=== PATIENT | female | born 1950 | race Caucasian/White ===

== ENCOUNTER 2021-07-30 12:47 | Emergency (ER) | payer SELFPAY ==
[2021-07-30 13:42] VITALS: BP 221/108; PULSE 87; RESP 16; TEMP 37; O2SAT 98
--- NOTE | 2021-07-30 15:02 | ED.SKABFB ---
HPI - Skin/Abscess/Foreign Bdy General Chief complaint: Wound/Laceration Stated complaint: cat bite Time Seen by Provider: 07/30/21 15:02 Source: patient Mode of arrival: ambulatory Limitations: no limitations History of Present Illness HPI narrative: Lisa Love is a71 yo female with a PMh of hypertension and refusal to take medication who comes [facility] with right arm swelling and pain because of a cat bite to do 11 days ago. Patient has taken ibuprofen for pain; patient has had increasing swelling over the last few days from cat bite that she has neglected to follow-up with a doctor or the emergency room. Related Data Allergies Allergy/AdvReac Type Severity Reaction Status Date / Time No Known Allergies Allergy Verified 07/30/21 14:32 Review of Systems Review of Systems: CONSTITUTIONAL: Denies fever, chills, sweats. EYES: Denies visual changes, redness, discharge. ENT: Denies rhinorrhea, congestion, sore throat, otalgia. CARDIOVASCULAR: Denies chest pain, palpitations, edema. RESPIRATORY: Denies dyspnea, wheezing, cough GASTROINTESTINAL: Denies abdominal pain, nausea, vomiting, diarrhea. GENITOURINARY: Denies dysuria, hematuria, abnormal discharge SKIN: Denies rash or itching. NEUROLOGIC: Denies numbness, or focal weakness. PSYCHIATRIC: Denies anxiety or depression. Right arm pain and swelling from cat bite Note PMFSH Past Medical History Medical History HTN (hypertension) Social History Social History (Updated 07/30/21 @ 15:18 by Kaylyn Troncoso CNP) Smoking status: Never smoker Comments At time of signature, I agree with nursing past medical, surgical, social and family history. There is no relevant family history pertinent to the presenting complaint. Exam Narrative: GENERAL: This is a well-nourished, well-developed patient, in mmoderate distress. HEAD: normocephalic, atraumatic. EYES: Sclera clear/white. Vision is grossly intact. EARS: External ears normal, Hearing grossly intact. NOSE: External nose normal without nasal discharge, nares without redness, no rhinorrhea. THROAT: Mucous membranes moist, NECK: Neck supple, CARDIOVASCULAR: Regular rate and rhythm without murmurs, gallops, or rubs. RESPIRATORY: Clear to auscultation. Breath sounds equal bilaterally. No wheezes, rales, or rhonchi. GASTROINTESTINAL: Abdomen soft, SKIN: warm, intact with red warm swelling from the base of fingers up to the elbow; arm is warm to touch and painful, cap refill less than 2 seconds, 2+ radial pulse NEURO: awake, alert, and oriented to person, place and time. There were no obvious focal neurologic abnormalities. Steady gait EXTREMITIES: Normal range of motion. BACK: Nontender without deformity Course Course Emergency Course: Patient comes with cat bites 11 days old that is infected and extends from the base of her fingers of the right hand elevated to right elbow the bite is actually at the heel of the hand and appears well healed but diffuse soft tissue swelling surrounds the area. Area is warm and tender Patient's blood pressure is also 220/108 Patient notes that she has high blood pressure refuses to take medication Patient requires IV antibiotics but refuses to go to the emergency room repeats that she needs only oral antibiotics and is I tried to educate patient on the unlikelihood that this will adequately treat this infection but she refuses to be transferred to the ER given IM Ancef 500 mg here at the clinic and started on clindamycin as she is allergic to both penicillin and to sulfa drugs. Patient counseled on the potential bad outcome of a cat bite that is not adequately treated which includes sepsis and , osteomyelitis. Patient informed that she should go to the emergency room if she starts running a fever are that pain increases, or if swelling continues to evolve Level of Care: Express Care Visit Vital Signs Vital signs: Vital Sign
[2021-07-30 16:03] VITALS: BP 219/81
== END 2021-07-30 16:03 | disposition home or self-care (01) ==
PROVIDERS: Emergency Provider Nurse Practitioner
DX: L03.113 Cellulitis of right upper limb (principal); S41.151A Open bite of right upper arm, initial encounter; W55.01XA Bitten by cat, initial encounter; I10 Essential (primary) hypertension
CPT/HCPCS: 96372; 99203; G0463; J0690

== ENCOUNTER 2024-05-27 16:49 | Emergency (ER) | payer SELFPAY ==
[2024-05-27] VITALS (14 sets, daily range): BP systolic 99–131; BP diastolic 67–89; PULSE 74–81; RESP 13–23; TEMP 36.6; O2SAT 95–99
--- NOTE | ~2024-05-27 | XR_ITS ---
XR chest 1V portable DATE: 05/27/2024 20:20 INDICATION: Weakness TECHNIQUE: Portable upright AP chest on 05/27/2024 2014 hours COMPARISON: None FINDINGS: Probable partial left mastectomy. Heart size is within normal limits. There is aortic arch calcification, mild thoracic aortic unfoldin g. No hilar or mediastinal enlargement. The lungs are mildly hyperinflated but clear of infiltrate or consolidation. Mild linear atelectasis or scarring at the right lung base. No pleural effusion or pulmonary vascular congestion or pneumothorax is detected. Osteopenia. IMPRESSION: Mild linear atelectasis or scarring at the right lung base; otherwise no active cardiac p ulmonary disease Aortic atherosclerosis Osteopenia Partial left mastectomy Reviewed, dictated and finalized at location [facility]. IMPRESSION: Mild linear atelectasis or scarring at the right lung base; otherwi se no active cardiac pulmonary disease Aortic atherosclerosis Osteopenia Partial left mastectomy
--- NOTE | ~2024-05-27 | CT_ITS ---
EXAMINATION: CT brain wo con DATE: 05/27/2024 18:34 INDICATION: Altered mental state TECHNIQUE: Computed tomography (CT) of the head was performed without intravenous contrast. The mA wa s adjusted according to patient size. Iterative reconstruction technique was employed. Exam dose: 60 5.33 mGy-cm total exam DLP. COMPARISON: None FINDINGS: There is a prominent unilateral area of diminished attenuation of the superolateral medial aspect of the right cerebellar hemisphere, suggesting subacute cerebellar infarct versus neoplasm. Th ere is some mass effect upon the posterior anterolateral aspect of the adjacent right fourth ventricl e. MR imaging of the brain is recommended for further evaluation. No intracranial mass lesion or hemorrhage is noted otherwise. No midline shift or mass effect other t piña that described at the posterolateral right fourth ventricle. Bilateral carotid siphon internal carotid artery calcifications and prominent right vertebral artery and some basilar artery calcification is noted. There is nonspecific diminished attenuation of the ce rebral white matter, likely due to chronic small vessel ischemic changes. Bilateral basal ganglia calcifications. No subdural or epidural hematoma is detected. No fracture or bone destruction of the cranial vault. The mastoid air cells and included paranasal si nuses are unremarkable. IMPRESSION: Prominent focal asymmetric low attenuation of the superomedial aspect of the right cereb ellum, with mass effect upon the posterior lateral aspect of the fourth ventricle thought most likely to be due to subacute cerebellar infarct; neoplasm is not excluded. MR imaging of the brain is recom mended for further evaluation Intracranial cerebral atherosclerosis and prominent nonspecific patchy diminished attenuation the cer ebral white matter, likely due to chronic small vessel ischemic changes Reviewed, dictated and finalized at [facility]. Reviewed, dictated and finalized at location [facility]. IMPRESSION: Prominent focal asymmetric low attenuation of the superomedial asp ect of the right cerebellum, with mass effect upon the posterior lateral aspect of the fourth ventricle thought most likely to be due to subacute cerebellar i nfarct; neoplasm is not excluded. MR imaging of the brain is recommended for fu rther evaluation Intracranial cerebral atherosclerosis and prominent nonspecific patchy diminish ed attenuation the cerebral white matter, likely due to chronic small vessel is chemic changes
--- NOTE | 2024-05-27 16:50 | ED.AMS ---
HPI - Altered Mental Status General Chief Complaint: Altered Mental Status <Gilmer Dewey MD - Last Filed: 05/27/24 20:34> Stated Complaint: AMS <Gilmer Dewey MD - Last Filed: 05/27/24 20:34> Time Seen by Provider: 05/27/24 16:50 <Gilmer Dewey MD - Last Filed: 05/27/24 20:34> Source: family and EMS <Gilmer Dewey MD - Last Filed: 05/27/24 20:34> Mode of arrival: EMS <Gilmer Dewey MD - Last Filed: 05/27/24 20:34> Limitations: altered mental status and clinical condition <Gilmer Dewey MD - Last Filed: 05/27/24 20:34> History of Present Illness HPI narrative: 74 YEARS OLD WHITE FEMALE CAME FROM [facility] BECAUSE OF NOT HERSELF, HARD TO WAKE UP THIS MORNING.. THE FAMILY DENIED THE PATIENT HAVE ANY FEVER, CHILLS, NAUSEA, VOMITING, DIARRHEA OR CONSTIPATION. HISTORY OF RECENT HEMORRHAGIC STROKE, APHASIA, GENERALIZED WEAKNESS, CURRENTLY ON PHYSICAL THERAPY AND SPEECH THERAPY. <Gilmer Dewey MD - Last Filed: 05/27/24 20:34> Related Data Home Medications: Home Medications Medication Instructions Recorded Confirmed acetaminophen 325 mg tablet 650 mg PO Q6H PRN Pain 05/23/24 05/23/24 amlodipine 10 mg tablet 10 mg PO DAILY 05/23/24 05/23/24 chlorthalidone 50 mg tablet 50 mg PO DAILY 05/23/24 05/23/24 docusate sodium 100 mg capsule 100 mg PO BID 05/23/24 05/23/24 heparin (porcine) 5,000 unit/mL 5,000 unit subcut Q12H 05/23/24 05/23/24 injection solution losartan 100 mg tablet 100 mg PO HS 05/23/24 05/23/24 sennosides 8.6 mg tablet 8.6 mg PO BID 05/23/24 05/23/24 <Gilmer Dewey MD - Last Filed: 05/27/24 20:34> Allergies/Adverse Reactions: Allergies Allergy/AdvReac Type Severity Reaction Status Date / Time No Known Allergies Allergy Verified 07/30/21 14:32 <Gilmer Dewey MD - Last Filed: 05/27/24 20:34> Review of Systems Review of Systems: ROS unobtainable: Yes unobtainable due to medical condition and unobtainable due to mental status <Gilmer Dewey MD - Last Filed: 05/27/24 20:34> PMFSH Past Medical History Medical History: Medical History (Updated 05/27/24 @ 20:50 by Jovany Gomez MD) HTN (hypertension) <Gilmer Dewey MD - Last Filed: 05/27/24 20:34> Social History Social History: Social History (Updated 07/30/21 @ 15:18 by Kaylyn Troncoso, [employer]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) Smoking status: Never smoker Second hand tobacco smoke exposure: No Alcohol intake: never Substance use: never Spiritual care concerns: No <Gilmer Dewey MD - Last Filed: 05/27/24 20:34> Exam Narrative: GENERAL APPEARANCE: WELL-DEVELOPED, WELL-NOURISHED SKIN: NORMAL COLOR HEAD: NORMOCEPHALIC, NONTRAUMATIC EYES: CLEAR CONJUNCTIVA ENT: OROPHARYNX NORMAL, EARS NORMAL, NOSE NORMAL NECK: SUPPLE, NONTENDER CHEST AND RESPIRATORY: AIRWAY PATENT, NO RESPIRATORY DISTRESS, NO ACCESSORY MUSCLE USE HEART: REGULAR RATE/RHYTHM ABDOMEN: SOFT, NONTENDER, NO ORGANOMEGALY, QUIET BOWEL SOUNDS VASCULAR: NORMAL PERIPHERAL PULSES, NORMAL CAPILLARY REFILL. MUSCULOSKELETAL: PATIENT IS ABLE TO MOVE ALL EXTREMITIES WITHOUT ANY LIMITATION NEUROLOGIC: ALERT AND ORIENTED ORIENTED TO HER NAME ONLY EXPRESSIVE APHASIA <Gilmer Dewey MD - Last Filed: 05/27/24 20:34> Course Consultations Consultation #1: DR WELLS, AT SHIFT CHANGE, WAITING FOR NEUROSURGERY CONSULT AT [facility] <Gilmer Dewey MD - Last Filed: 05/27/24 20:34> Date: 05/27/24 <Gilmer Dewey MD - Last Filed: 05/27/24 20:34> Time: 20:34 <Gilmer Dewey MD - Last Filed: 05/27/24 20:34> Vital Signs Vital signs: Vital Signs Temperature 36.6 C 05/27/24 16:49 Pulse Rate 77 05/27/24 16:49 Respiratory Rate 19 05/27/24 16:49 Blood Pressure 117/68 05/27/24 16:49 Pulse Oximetry 95 05/27/24 16:49 Oxygen Delivery Room Air 05/27/24 16:49 Temperature 36.6 C 05/27/24 16:49 Pulse Rate 77 05/27/24 16:49 Respiratory Rate 19 05/27/24 16:49 Blood Pressure 117/68 05/27/24 16:49 Pulse Oximetry 95 05/27/24 16:49 Oxygen Delivery Room Air 05/27/24 17:37 <Gilmer Dewey MD - Last Filed: 05/27/24 20:34> Vital Signs Temperature 36.6 C 05/27/24 16:49 Pulse Rate 77 05/27/24 16:49 Respiratory Rate 19 05/27/24 16:49 Blood Pressure 117/68 05/27/24 16:49 Pulse Oximetry 95 05/27/24 16:49 Oxygen Delivery Room Air 05/27/24 16:49 Temperature 36.6 C 05/27/24 16:49 Pulse Rate 77 05/27/24 16:49 Respiratory Rate 19 05/27/24 16:49 Blood Pressure 117/68 05/27/24 16:49 Pulse Oximetry 95 05/27/24 16:49 Oxygen Delivery Room Air 05/27/24 17:37 <Jovany Gomez MD - Last Filed: 05/27/24 20:50> MDM - Altered Mental Status MDM Narrative Medical decision making narrative: PATIENT PRESENTS WITH NOT HERSELF, MORE WEAK AND LONG HOURS SLEEP. PATIENT IS STATUS POST HEMORRHAGIC STROKE, [facility] FOR THE LAST 7 DAYS. VITAL SIGNS ARE STABLE PHYSICAL EXAMINATION SHOWING A PATIENT NOT IN ANY PAIN OR DISTRESS. APHASIC DIFFERENTIAL DIAGNOSIS INCLUDE NEW CVA, ELECTROLYTE IMBALANCE, DEHYDRATION, URINARY TRACT INFECTION, PNEUMONIA, DEPRESSION BLOOD WORKUP TODAY SHOWED NO SIGNIFICANT ABNORMALITIES, URINALYSIS SHOWED NO EVIDENCE OF INFECTION CT HEAD SHOWED SUBACUTE CEREBELLAR INFARCT VERSUS NEW PLASMA MRI IMAGING OF THE BRAIN IS RECOMMENDED WAITING FOR NEUROSURGERY CONSULT AT [facility] TO FIND OUT IF THE CT SCAN RESULT IS NEW OR OLD. IN CASE OF NO ACUTE CHANGES , PATIENT CAN GO BACK TO REHAB. <Gilmer Dewey MD - Last Filed: 05/27/24 20:34> PATIENT PRESENTS WITH NOT HERSELF, MORE WEAK AND LONG HOURS SLEEP. PATIENT IS STATUS POST HEMORRHAGIC STROKE, [facility] FOR THE LAST 7 DAYS. VITAL SIGNS ARE STABLE PHYSICAL EXAMINATION SHOWING A PATIENT NOT IN ANY PAIN OR DISTRESS. APHASIC DIFFERENTIAL DIAGNOSIS INCLUDE NEW CVA, ELECTROLYTE IMBALANCE, DEHYDRATION, URINARY TRACT INFECTION, PNEUMONIA, DEPRESSION BLOOD WORKUP TODAY SHOWED NO SIGNIFICANT ABNORMALITIES, URINALYSIS SHOWED NO EVIDENCE OF INFECTION CT HEAD SHOWED SUBACUTE CEREBELLAR INFARCT VERSUS NEW PLASMA MRI IMAGING OF THE BRAIN IS RECOMMENDED WAITING FOR NEUROSURGERY CONSULT AT [facility] TO FIND OUT IF THE CT SCAN RESULT IS NEW OR OLD. IN CASE OF NO ACUTE CHANGES , PATIENT CAN GO BACK TO REHAB. Dr. Cardenas from [facility] at [place] reviewed the CT scan and noted that there is no change the patient will be discharged back to rehab <Jovany Gomez MD - Last Filed: 05/27/24 20:50> Differential Diagnosis Differential diagnosis: Likely other ( ABOVE) <Gilmer Dewey MD - Last Filed: 05/27/24 20:34> Medical Records Attestation: I reviewed the patient's medical records. <Gilmer Dewey MD - Last Filed: 05/27/24 20:34> Lab Data Attestation: I reviewed the patient's lab results. <Gilmer Dewey MD - Last Filed: 05/27/24 20:34> Result diagrams: 05/27/24 17:42 05/27/24 17:42 <Gilmer Dewey MD - Last Filed: 05/27/24 20:34> Labs: Lab Results 05/27/24 05/27/24 Range/Units 17:42 20:08 WBC 6.8 (4.5-10.0) K/mm3 RBC 3.47 L (4.2-5.4) M/mm3 Hgb 10.9 L (12.0-15.0) g/dL Hct 33.1 L (37.0-47.0) % MCV 95.4 (80-100) fl MCH 31.4 (26-34) pg MCHC 32.9 (32-36) g/dl RDW 15.0 H (11.5-14.5) % Plt Count 368 (150-375) k/mm3 MPV 8.8 (7.4-10.4) fl Immature Gran % (Auto) 0.4 (0-0.5) % Neut % (Auto) 68.9 (45.5-73.1) % Lymph % (Auto) 22.4 (18.3-44.2) % [place] % (Auto) 7.3 (2.6-8.5) % Eos % (Auto) 0.7 (0-4.4) % Baso % (Auto) 0.3 (0.2-1.2) % Lymph # (Auto) 1.51 (0.9-3.2) K/mm3 [place] # (Auto) 0.5 (0.1-0.6) K/mm3 Eos # (Auto) 0.1 (0-0.3) K/mm3 Baso # (Auto) 0.0 (0.0-0.1) K/mm3 Abs Immat Gran (auto) 0.03 (0.00-0.031) K/mm3 Absolute Neuts (auto) 4.7 (1.3-6.7) K/mm3 Absolute Nucleated RBC 0.000 (0.0-0.012) K/mm3 Nucleated RBC % 0.0 (0.0-0.2) % PT 13.5 (11.1-14.7) Seconds INR 1.0 APTT 27.1 (22.3-36.8) Seconds Sodium 135 L (137-145) mmol/L Potassium 4.5 (3.4-5.0) mmol/L Chloride 97 L (98-107) mmol/L Carbon Dioxide 26 (22-30) mmol/L Anion Gap 12 (4-12) mmol/L BUN 44 H (7-17) mg/dL Creatinine 1.00 (0.7-1.0) mg/dL Estim Creat Clear Calc Not Reportable Estimated GFR 54 L (59 - ) Glucose 97 (65-110) mg/dL Calcium 9.4 (8.4-10.2) mg/dL Total Bilirubin 0.4 (0.2-1.3) mg/dL AST 23 (14-36) U/L ALT 22 (6-35) U/L Alkaline Phosphatase 110 (38-126) U/L Total Protein 7.0 (6.3-8.2) g/dL Albumin 4.0 (3.5-5.1) g/dL Urine Color Dark yellow (Yellow) Urine Appearance Clear (Clear) Urine pH 5.5 (5.0-9.0) Ur Specific [place] 1.016 (1.001-1.035) Urine Protein Negative (Negative) mg/dL Urine Glucose (UA) Negative (Negative) mg/dL Urine Ketones Negative (Negative) mg/dL Ur Blood (Man) Negative (Negative) Urine Nitrate Negative (Negative) Urine Bilirubin Negative (Negative) Urine Urobilinogen 0.2 (<2.0) mg/dL Leukocyte Esterase Rfl Trace H (Negative) MARTHA/UL Urine RBC 0-2 (0-2) /hpf Urine WBC 0-5 (0-3) /hpf Ur Squamous Epith Cells None seen (Few) /hpf Urine Bacteria 4+ H /hpf Urine Casts 3-5 Influenza A (RT-PCR) Pending Influenza B (RT-PCR) Pending RSV (RT-PCR) Pending SARS-CoV-2 RNA (RT-PCR) Pending <Gilmer Dewey MD - Last Filed: 05/27/24 20:34> Lab Results 05/27/24 05/27/24 Range/Units 17:42 20:08 WBC 6.8 (4.5-10.0) K/mm3 RBC 3.47 L (4.2-5.4) M/mm3 Hgb 10.9 L (12.0-15.0) g/dL Hct 33.1 L (37.0-47.0) % MCV 95.4 (80-100) fl MCH 31.4 (26-34) pg MCHC 32.9 (32-36) g/dl RDW 15.0 H (11.5-14.5) % Plt Count 368 (150-375) k/mm3 MPV 8.8 (7.4-10.4) fl Immature Gran % (Auto) 0.4 (0-0.5) % Neut % (Auto) 68.9 (45.5-73.1) % Lymph % (Auto) 22.4 (18.3-44.2) % [place] % (Auto) 7.3 (2.6-8.5) % Eos % (Auto) 0.7 (0-4.4) % Baso % (Auto) 0.3 (0.2-1.2) % Lymph # (Auto) 1.51 (0.9-3.2) K/mm3 [place] # (Auto) 0.5 (0.1-0.6) K/mm3 Eos # (Auto) 0.1 (0-0.3) K/mm3 Baso # (Auto) 0.0 (0.0-0.1) K/mm3 Abs Immat Gran (auto) 0.03 (0.00-0.031) K/mm3 Absolute Neuts (auto) 4.7 (1.3-6.7) K/mm3 Absolute Nucleated RBC 0.000 (0.0-0.012) K/mm3 Nucleated RBC % 0.0 (0.0-0.2) % PT 13.5 (11.1-14.7) Seconds INR 1.0 APTT 27.1 (22.3-36.8) Seconds Sodium 135 L (137-145) mmol/L Potassium 4.5 (3.4-5.0) mmol/L Chloride 97 L (98-107) mmol/L Carbon Dioxide 26 (22-30) mmol/L Anion Gap 12 (4-12) mmol/L BUN 44 H (7-17) mg/dL Creatinine 1.00 (0.7-1.0) mg/dL Estim Creat Clear Calc Not Reportable Estimated GFR 54 L (59 - ) Glucose 97 (65-110) mg/dL Calcium 9.4 (8.4-10.2) mg/dL Total Bilirubin 0.4 (0.2-1.3) mg/dL AST 23 (14-36) U/L ALT 22 (6-35) U/L Alkaline Phosphatase 110 (38-126) U/L Total Protein 7.0 (6.3-8.2) g/dL Albumin 4.0 (3.5-5.1) g/dL Urine Color Dark yellow (Yellow) Urine Appearance Clear (Clear) Urine pH 5.5 (5.0-9.0) Ur Specific [place] 1.016 (1.001-1.035) Urine Protein Negative (Negative) mg/dL Urine Glucose (UA) Negative (Negative) mg/dL Urine Ketones Negative (Negative) mg/dL Ur Blood (Man) Negative (Negative) Urine Nitrate Negative (Negative) Urine Bilirubin Negative (Negative) Urine Urobilinogen 0.2 (<2.0) mg/dL Leukocyte Esterase Rfl Trace H (Negative) MARTHA/UL Urine RBC 0-2 (0-2) /hpf Urine WBC 0-5 (0-3) /hpf Ur Squamous Epith Cells None seen (Few) /hpf Urine Bacteria 4+ H /hpf Urine Casts 3-5 Influenza A (RT-PCR) Pending Influenza B (RT-PCR) Pending RSV (RT-PCR) Pending SARS-CoV-2 RNA (RT-PCR) Pending <Jovany Gomez MD - Last Filed: 05/27/24 20:50> Imaging Data Radiologist's impression: Impressions Head CT 05/27/24 18:35 IMPRESSION: Prominent focal asymmetric low attenuation of the superomedial aspect of the right cerebellum, with mass effect upon the posterior lateral aspect of the fourth ventricle thought most likely to be due to subacute cerebellar infarct; neoplasm is not excluded. MR imaging of the brain is recommended for further evaluation Intracranial cerebral atherosclerosis and prominent nonspecific patchy diminished attenuation the cerebral white matter, likely due to chronic small vessel ischemic changes <Gilmer Dewey MD - Last Filed: 05/27/24 20:34> ECG Data EKG #1: Attestation: I personally reviewed and interpreted this ECG as follows: <Gilmer Dewey MD - Last Filed: 05/27/24 20:34> ECG completion date: 05/27/24 <Gilmer Dewey MD - Last Filed: 05/27/24 20:34> ECG completion time: 20:03 <Gilmer Dewey MD - Last Filed: 05/27/24 20:34> Prior ECG tracings: not available for review <Gilmer Dewey MD - Last Filed: 05/27/24 20:34> Interpretation: NORMAL SINUS RHYTHM AT 78 BEATS PER MINUTE, LEFT AXIS DEVIATION, INCOMPLETE RIGHT BUNDLE-BRANCH BLOCK, ANTERIOR INFARCT AGE INDETERMINATE, INFERIOR INFARCT AGE INDETERMINATE, ABNORMAL EKG, NO PREVIOUS EKG AVAILABLE FOR COMPARISON <Gilmer Dewey MD - Last Filed: 05/27/24 20:34> Critical Care Time Critical Care Time Critical Care Time: Yes <Gilmer Dewey MD - Last Filed: 05/27/24 20:34> Total Critical Care Time: 30 <Gilmer Dewey MD - Last Filed: 05/27/24 20:34> Discharge Plan Discharge Clinical Impression: Generalized weakness <Gilmer Dewey MD - Last Filed: 05/27/24 20:34> Patient Disposition: NH Detention/Asst Living <Gilmer Dewey MD - Last Filed: 05/27/24 20:34> Condition: Stable <Gilmer Dewey MD - Last Filed: 05/27/24 20:34> Instructions: Antibiotic Form, General Patient Instructions, Weakness (ED) <Gilmer Dewey MD - Last Filed: 05/27/24 20:34> Prescriptions: No Action sennosides 8.6 mg Tablet 8.6 mg PO BID acetaminophen 325 mg Tablet 650 mg PO Q6H PRN (Reason: Pain) chlorthalidone 50 mg Tablet 50 mg PO DAILY amlodipine 10 mg Tablet 10 mg PO DAILY docusate sodium 100 mg Capsule 100 mg PO BID losartan 100 mg Tablet 100 mg PO HS heparin (porcine) 5,000 unit/mL Solution 5,000 unit SUBCUT Q12H <Gilmer Dewey MD - Last Filed: 05/27/24 20:34> Follow-up/Referrals: PHYSICIAN NOT ON STAFF,NONSTAFF [Non-Staff] - <Gilmer Dewey MD - Last Filed: 05/27/24 20:34> Time of Disposition: 20:50 <Gilmer Dewey MD - Last Filed: 05/27/24 20:34> 20:50 <Jovany Gomez MD - Last Filed: 05/27/24 20:50>
--- NOTE | 2024-05-27 16:57 | ECG_ITS ---
Test Date: 2024-05-27 17:15:09 Measurements Intervals [place] Rate: 78 P: 53 [place]: 173 QRS: -35 QRSD: 96 T: 42 QT: 367 QTc: 419 Interpretive Statements SINUS RHYTHM LEFT AXIS DEVIATION INCOMPLETE RIGHT BUNDLE BRANCH BLOCK ANTERIOR INFARCT, AGE INDETERMINATE INFERIOR INFARCT, AGE INDETERMINATE BASELINE ARTIFACT- I, II, III, AVR, AVL, AVF, V1-V2 ABNORMAL ECG No previous ECG available for comparison Electronically Signed On 05-27-2024 17:17:03 CDT by Drew Roque D.O.
[2024-05-27 17:56] LABS: Basophils Percent Auto 0.3 % (0.2-1.2); Eosinophils Absolute Auto 0.1 K/mm3 (0-0.3); Eosinophils Percent Auto 0.7 % (0-4.4); Hematocrit 33.1 % (37.0-47.0); Hemoglobin 10.9 g/dL (12.0-15.0); Immature Granulocyte Absolute 0.03 K/mm3 (0.00-0.031); Immature Granulocyte Percent A 0.4 % (0-0.5); Lymphocytes Absolute Auto 1.51 K/mm3 (0.9-3.2); Lymphocytes Percent Auto 22.4 % (18.3-44.2); Mean Corpuscular HGB Conc 32.9 g/dl (32-36); Mean Corpuscular Hemoglobin 31.4 pg (26-34); Mean Corpuscular Volume 95.4 fl (80-100); Mean Platelet Volume 8.8 fl (7.4-10.4); Monocytes Absolute Auto 0.5 K/mm3 (0.1-0.6); Monocytes Percent Auto 7.3 % (2.6-8.5); Neutrophils Absolute Auto 4.7 K/mm3 (1.3-6.7); Neutrophils Percent Auto 68.9 % (45.5-73.1); Platelet Count Result 368 k/mm3 (150-375); Red Blood Count 3.47 M/mm3 (4.2-5.4); White Blood Count 6.8 K/mm3 (4.5-10.0)
[2024-05-27 17:59] LABS: Add Urine Microscopic? YES; Appearance Urine Clear (Clear); Bacteria Urine 4+ /hpf; Bilirubin Urine Negative (Negative); Blood Urine Negative (Negative); Color Urine Dark Yellow (Yellow); Glucose Urine UA Negative (Negative); Ketones Urine Negative (Negative); Leukocyte Esterase Ur Trace LEU/UL (Negative); Nitrate Urine Negative (Negative); Protein Urine Negative (Negative); RBC Urine 0-2 /hpf (0-2); Specific Grav Ur 1.016 (1.001-1.035); Squamous Epithelial Cell Urine None Seen /hpf (Few); Urobilinogen Urine 0.2 mg/dL (<2.0); WBC Urine 0-5 /hpf (0-3); pH Urine 5.5 (5.0-9.0)
[2024-05-27 18:06] LABS: Alanine Aminotransferase 22 U/L (6-35); Alkaline Phosphatase 110 U/L (38-126); Anion Gap 12 mmol/L (4-12); Aspartate Amino Transferase 23 U/L (14-36); Bilirubin,Total 0.4 mg/dL (0.2-1.3); Blood Urea Nitrogen 44 mg/dL (7-17); Calcium 9.4 mg/dL (8.4-10.2); Carbon Dioxide 26 mmol/L (22-30); Chloride 97 mmol/L (98-107); Estimated Glomerular Filt Rate 54; Glucose 97 mg/dL (65-110); Potassium 4.5 mmol/L (3.4-5.0); Sodium 135 mmol/L (137-145)
[2024-05-27 18:07] LABS: Prothrombin Time 13.5 Seconds (11.1-14.7)
[2024-05-27 18:13] LABS: Partial Thromboplastin Time 27.1 Seconds (22.3-36.8)
[2024-05-27 20:54] LABS: Influenza A QL RT-PCR Negative (Negative); Influenza B QL RT-PCR Negative (Negative); RSV RNA, RT-PCR Negative (Negative); SARS-CoV-2 RNA PCR Negative (Negative)
[2024-05-28 00:40] VITALS: BP 125/68; RESP 20; O2SAT 97
--- NOTE | 2024-05-28 00:41 | PC.NURSE ---
This RN attempted to call report to [facility], spoke with Meryl. Meryl stated we don't accept patients past midnight. This RN informed Meryl the patient is a patient of [facility] and is coming back. The patient was already a patient there and I was calling to give report. Meryl stated she checked with other staff and that they do not accept patients after midnight and the patient will have to wait until the morning to come back. This RN informed her that patients in the past have been accepted back after being discharged from the ER. Meryl stated well I don't know what to tell you. This RN requested to speak to the hotel service supervisor, she stated I am the hotel service supervisor xu. This RN spoke with nurse charge rn and supervisor shellfish farming MALIA Viramontes who then called Meryl at [facility] and spoke with [facility] administration who then stated the patient can return back to [facility]. Report was called again to Meryl at 0125.
== END 2024-05-28 01:39 ==
PROVIDERS: Emergency Provider Emergency Medicine; PCP Family Medicine
DX: R53.1 Weakness (principal); I10 Essential (primary) hypertension; Z20.822 Contact with and (suspected) exposure to COVID-19
CPT/HCPCS: 36415; 70450; 71045; 80053; 81001; 85025; 85610; 85730; 87637; 93005; 99284

== ENCOUNTER 2024-06-06 13:43 | Emergency (ER) | payer SELFPAY ==
--- NOTE | ~2024-06-06 | CT_ITS ---
History: Altered mental status PROCEDURE: CT head without contrast. COMPARISON: 05/27/2024 TECHNIQUE: Axial imaging of the head performed from the skull base to the vertex without IV contrast. Sagittal a nd coronal reformations obtained. DLP: 684 mGy-cm FINDINGS: Redemonstration of an asymmetric focus of decreased attenuation measuring 24 x 26 x 23 mm within the cerebellum, primarily to the right of midline demonstrating mass effect on the fourth ventricle. There is no abnormal extra-axial fluid collection or intracranial hemorrhage. Visualized paranasal sinuses are clear. The mastoid air cells are well aerated. No acute displaced fractures within the overlying cranium. Impression: Redemonstration of an asymmetric focus of decreased attenuation within the cerebellum demonstrating m ass effect on the fourth ventricle for which contrast enhanced MRI is recommended. Reviewed, dictated and finalized at location A. S SERVICE PROFESSIONAL Impression: Redemonstration of an asymmetric focus of decreased attenuation within the cere bellum demonstrating mass effect on the fourth ventricle for which contrast enh anced MRI is recommended.
[2024-06-06 13:47] VITALS: BP 148/87; PULSE 94; RESP 16; TEMP 36.6; O2SAT 99
[2024-06-06 14:00] VITALS: BP 141/78; PULSE 89; RESP 14; O2SAT 98
--- NOTE | 2024-06-06 14:09 | PC.NURSE ---
Baseline post CVA last month - A&Ox1-2. LKW of baseline A&O1-2 is yesterday afternoon sometime, exact time unknown. Information per MALIA Calle at [facility]. [facility] has already contacted pt. MATIAS Gonzalez Racquel (daughter) [phone].
[2024-06-06 14:21] LABS: Glucose Point of Care 117 mg/dl (65-105)
[2024-06-06 15:15] VITALS: BP 119/69; PULSE 82; RESP 14; O2SAT 98
--- NOTE | 2024-06-06 15:48 | ED_ITS ---
HPI - General Adult General Chief complaint: Altered Mental Status Stated complaint: AMS Time Seen by Provider: 06/06/24 15:27 History of Present Illness HPI narrative: 74-year-old female presenting to the emergency department for evaluation for increased confusion. Patient is new to rehab facility they felt that she was more confused than normal. Patient is aware that she is an [facility], she is aware she had a recent stroke and she is aware that people felt that she was confused. Patient denies any pain or complaints. Patient denies any pain with urination. Patient denies any recent falls or injuries. from previous EMR- Lisa Rony Love is a 74 y.o. female with no significant past medical history admitted to NNICU for ventriculomegaly and possible h ydrocephalus 2/2 posterior fossa mass. Initially she presented to [facility] ED with c/o nausea, vomiting, difficulty walking and talking progressively worsening x1 week. Had not seen a physician in 35 years, no medical conditions or medications per her daughter. 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 Transferred to [facility] NNICU for NSGY evaluation 05/03 and EVD placed. Brain MRI without contrast performed 05/04 and demonstrated a subacute cerebellar intraparenchymal hemorrhage without clear abnormal contrast enhancement. The hemorrhage was bright on T1 and T2, suggestive of a subacute hemorrhage, in addition, she had chronic microbleeds in a pattern that was consistent with hypertensive induced injuries. Neurology concerned for potential mass lesion and recommended pt. have repeat MRI in 2-3 months once her hemorrhage has fully resolved. Pt?s EVD clamped on 05/05 and removed on 05/06. Pt. experienced new dysphagia, MBS done on 05/08 and pureed diet recommend and PO for pleasure only, NPO for liquid and NG tube placed for TF. Repeat swallow on 05/11 recommended dysphagia 1 diet, honey thick liquids and meds in puree. Due to poor oral intake and PO feedings limited to pleasure G tube discussed with family and placed 05/13. MBS passed on 05/17 and regular diet with thin liquids allowed TF for night nutrition. 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, left cerebellum Debilitated HTN (hypertension) Intraparenchymal hemorrhage of brain Social History Social History Smoking status: Never smoker Second hand tobacco smoke exposure: No Alcohol intake: never Substance use: never Substance use type: does not use Do You Feel Safe in your Home?: Yes Lack of Transportation: No Lack of Food: Never True Current Housing: I Have Housing Concerned About Future Housing: No Difficulty Paying Gas/Electric Bills: No Difficulty Paying for Meds: No Currently Unemployed: No Education: Master's Degree or Higher Difficulty w/ Childcare or Family Care: No Spiritual care concerns: No Exam Narrative: APPEARANCE: Well appearing, no pain, no distress, well-nourished. HEAD: normocephalic, atraumatic. EYES: PERRLA/EOMI, conjunctivae clear. NOSE: Normal no drainage EARS:TMS clear with good light reflex. THROAT: Pharynx clear, no exudate. NECK: Supple. No adenopathy, no masses. RESPIRATORY: Airway patent, respirations nonlabored. Clear to auscultation bilaterally, no rales, rhonchi, wheezing. CARDIOVASCULAR: Regular rate and rhythm without murmurs rubs or gallops. ABDOMINAL: Soft, nontender, nondistended, normal bowel sounds MUSCULOSKELETAL: Moves all extremities. Strength/ROM intact, No edema, No calf tenderness. NEURO: Alert. Cranial nerves II through XII intact. Good gait. Good coordination SKIN: Warm, dry. Normal Color Course Vital Signs Vital signs: Vital Signs Temperature 97.8 F 06/06/24 13:47 Pulse Rate 94 06/06/24 13:47 Respiratory Rate 16 06/06/24 13:47 Blood Pressure 148/87 H 06/06/24 13:47 Pulse Oximetry 99 06/06/24 13:47 Oxygen Delivery Room Air 06/06/24 13:47 Temperature 97.8 F 06/06/24 13:47 Pulse Rate 82 06/06/24 15:15 Respiratory Rate 14 06/06/24 15:15 Blood Pressure 119/69 06/06/24 15:15 Pulse Oximetry 98 06/06/24 15:15 Oxygen Delivery Room Air 06/06/24 13:54 Medical Decision Making MDM Narrative Medical decision making narrative: Imaging was unchanged compared to previous. Patient is being treated for urinary tract infection. Vital Signs Vital Signs: Vital Signs Temperature 97.8 F 06/06/24 13:47 Pulse Rate 94 06/06/24 13:47 Respiratory Rate 16 06/06/24 13:47 Blood Pressure 148/87 H 06/06/24 13:47 Pulse Oximetry 99 06/06/24 13:47 Oxygen Delivery Room Air 06/06/24 13:47 Temperature 97.8 F 06/06/24 13:47 Pulse Rate 82 06/06/24 15:15 Respiratory Rate 14 06/06/24 15:15 Blood Pressure 119/69 06/06/24 15:15 Pulse Oximetry 98 06/06/24 15:15 Oxygen Delivery Room Air 06/06/24 13:54 Lab Data 06/06/24 15:56 06/06/24 15:56 Labs: Lab Results 06/06/24 06/06/24 06/06/24 Range/Units 14:18 15:56 16:54 WBC 6.4 (4.5-10.0) K/mm3 RBC 3.33 L (4.2-5.4) M/mm3 Hgb 10.6 L (12.0-15.0) g/dL Hct 32.0 L (37.0-47.0) % MCV 96.1 (80-100) fl MCH 31.8 (26-34) pg MCHC 33.1 (32-36) g/dl RDW 15.1 H (11.5-14.5) % Plt Count 294 (150-375) k/mm3 MPV 8.7 (7.4-10.4) fl Immature Gran % (Auto) 0.3 (0-0.5) % Neut % (Auto) 73.2 H (45.5-73.1) % Lymph % (Auto) 20.6 (18.3-44.2) % [place] % (Auto) 5.1 (2.6-8.5) % Eos % (Auto) 0.3 (0-4.4) % Baso % (Auto) 0.5 (0.2-1.2) % Lymph # (Auto) 1.32 (0.9-3.2) K/mm3 [place] # (Auto) 0.3 (0.1-0.6) K/mm3 Eos # (Auto) 0.0 (0-0.3) K/mm3 Baso # (Auto) 0.0 (0.0-0.1) K/mm3 Abs Immat Gran (auto) 0.02 (0.00-0.031) K/mm3 Absolute Neuts (auto) 4.7 (1.3-6.7) K/mm3 Absolute Nucleated RBC 0.000 (0.0-0.012) K/mm3 Nucleated RBC % 0.0 (0.0-0.2) % PT 14.0 (11.1-14.7) Seconds INR 1.1 APTT 30.8 (22.3-36.8) Seconds Sodium 136 L (137-145) mmol/L Potassium 4.0 (3.4-5.0) mmol/L Chloride 98 (98-107) mmol/L Carbon Dioxide 31 H (22-30) mmol/L Anion Gap 7 (4-12) mmol/L BUN 21 H (7-17) mg/dL Creatinine 0.70 (0.7-1.0) mg/dL Estim Creat Clear Calc Not Reportable Estimated GFR > 60 (59 - ) Glucose 111 H (65-110) mg/dL POC Capillary Glucose 117 H (65-105) mg/dl Calcium 9.8 (8.4-10.2) mg/dL Total Bilirubin 0.2 (0.2-1.3) mg/dL AST 27 (14-36) U/L ALT 17 (6-35) U/L Alkaline Phosphatase 112 (38-126) U/L Total Protein 8.0 (6.3-8.2) g/dL Albumin 4.2 (3.5-5.1) g/dL Urine Color Yellow (Yellow) Urine Appearance Clear (Clear) Urine pH 7.5 (5.0-9.0) Ur Specific [place] 1.018 (1.001-1.035) Urine Protein Negative (Negative) mg/dL Urine Glucose (UA) Negative (Negative) mg/dL Urine Ketones Negative (Negative) mg/dL Ur Blood (Man) Negative (Negative) Urine Nitrate Negative (Negative) Urine Bilirubin Negative (Negative) Urine Urobilinogen 0.2 (<2.0) mg/dL Add Ur Microanalysis Reviewed Leukocyte Esterase Rfl 2+ H (Negative) MARTHA/UL Urine RBC 3-5 H (0-2) /hpf Urine WBC 21-50 H (0-3) /hpf Ur Squamous Epith Cells Occasional (Few) /hpf Urine Bacteria None seen /hpf Urine Casts 3-5 Influenza A (RT-PCR) Negative (Negative) Influenza B (RT-PCR) Negative (Negative) RSV (RT-PCR) Negative (Negative) SARS-CoV-2 RNA (RT-PCR) Negative (Negative) Discharge Plan Discharge Clinical Impression: UTI (urinary tract infection) Qualifiers: Urinary tract infection type: acute cystitis Hematuria presence: without hematuria Qualified Code(s): N30.00 - Acute cystitis without hematuria Patient Disposition: NH Half-Way/Asst Living Condition: Stable Instructions: Antibiotic Form, General Patient Instructions, Urinary Tract Inf ection in Women (DC) Additional Instructions: Antibiotic as directed until completed. Have close follow-up with your physicians. If you have any worsening symptoms then please call or return to the emergency department. Prescriptions: No Action sennosides-docusate sodium [Senna with Docusate Sodium] 8.6-50 mg Tablet 2 tablet PO BID Qty: 30 0RF atorvastatin 40 mg Tablet 40 mg PO DAILY Qty: 30 0RF acetaminophen 325 mg Tablet 650 mg PO Q6H PRN (Reason: Pain 1- 10) Qty: 30 0RF sennosides-docusate sodium [Senokot-S] 8.6-50 mg Tablet 2 tab PO BID Qty: 30 0RF amlodipine [Norvasc] 5 mg Tablet 5 mg PO DAILY Qty: 30 0RF modafinil [Provigil] 200 mg Tablet 200 mg PO QAM Qty: 30 0RF losartan 25 mg Tablet 25 mg PO HS Qty: 30 0RF aspirin [Children's Aspirin] 81 mg Tablet,Chewable 81 mg PO QAM Qty: 30 0RF hydrochlorothiazide 25 mg Tablet 25 mg PO DAILY Qty: 30 0RF mirtazapine [Remeron] 15 mg Tablet 7.5 mg PO HS Qty: 30 0RF acetaminophen 325 mg Tablet 650 mg PO Q6H PRN (Reason: Pain) Follow-up/Referrals: Hiram,Mony Babin DO [Primary Care Provider] -
[2024-06-06 16:04] LABS: Basophils Percent Auto 0.5 % (0.2-1.2); Eosinophils Percent Auto 0.3 % (0-4.4); Hemoglobin 10.6 g/dL (12.0-15.0); Immature Granulocyte Absolute 0.02 K/mm3 (0.00-0.031); Immature Granulocyte Percent A 0.3 % (0-0.5); Lymphocytes Absolute Auto 1.32 K/mm3 (0.9-3.2); Lymphocytes Percent Auto 20.6 % (18.3-44.2); Mean Corpuscular HGB Conc 33.1 g/dl (32-36); Mean Corpuscular Hemoglobin 31.8 pg (26-34); Mean Corpuscular Volume 96.1 fl (80-100); Mean Platelet Volume 8.7 fl (7.4-10.4); Monocytes Absolute Auto 0.3 K/mm3 (0.1-0.6); Monocytes Percent Auto 5.1 % (2.6-8.5); Neutrophils Absolute Auto 4.7 K/mm3 (1.3-6.7); Neutrophils Percent Auto 73.2 % (45.5-73.1); Platelet Count Result 294 k/mm3 (150-375); Red Blood Count 3.33 M/mm3 (4.2-5.4); Red Cell Distribution Width 15.1 % (11.5-14.5); White Blood Count 6.4 K/mm3 (4.5-10.0)
[2024-06-06 16:14] LABS: Alanine Aminotransferase 17 U/L (6-35); Albumin Level 4.2 g/dL (3.5-5.1); Alkaline Phosphatase 112 U/L (38-126); Anion Gap 7 mmol/L (4-12); Aspartate Amino Transferase 27 U/L (14-36); Bilirubin,Total 0.2 mg/dL (0.2-1.3); Blood Urea Nitrogen 21 mg/dL (7-17); Calcium 9.8 mg/dL (8.4-10.2); Carbon Dioxide 31 mmol/L (22-30); Chloride 98 mmol/L (98-107); Estimated Glomerular Filt Rate > 60; Glucose 111 mg/dL (65-110); Sodium 136 mmol/L (137-145)
[2024-06-06 16:23] LABS: INR 1.1
[2024-06-06 16:24] LABS: Partial Thromboplastin Time 30.8 Seconds (22.3-36.8)
[2024-06-06 16:40] LABS: Influenza A QL RT-PCR Negative (Negative); Influenza B QL RT-PCR Negative (Negative); RSV RNA, RT-PCR Negative (Negative); SARS-CoV-2 RNA PCR Negative (Negative)
[2024-06-06 17:12] LABS: Add Urine Microscopic? YES; Appearance Urine Clear (Clear); Bacteria Urine None Seen /hpf; Bilirubin Urine Negative (Negative); Blood Urine Negative (Negative); Color Urine Yellow (Yellow); Glucose Urine UA Negative (Negative); Ketones Urine Negative (Negative); Leukocyte Esterase Ur 2+ LEU/UL (Negative); Need Manual Microscopic Reviewed; Nitrate Urine Negative (Negative); Protein Urine Negative (Negative); Specific Grav Ur 1.018 (1.001-1.035); Squamous Epithelial Cell Urine Occasional /hpf (Few); Urobilinogen Urine 0.2 mg/dL (<2.0); WBC Urine 21-50 /hpf (0-3); pH Urine 7.5 (5.0-9.0)
[2024-06-06] MEDS: CEPHALEXIN 500 MG CAPSULE PO (18:34)
== END 2024-06-06 18:59 ==
PROVIDERS: Emergency Provider Emergency Medicine; PCP Family Medicine
DX: N30.00 Acute cystitis without hematuria (principal); Z20.822 Contact with and (suspected) exposure to COVID-19; I10 Essential (primary) hypertension; Z86.73 Personal history of transient ischemic attack (TIA), and cerebral infarction without residual deficits; Z79.82 Long term (current) use of aspirin; Z79.899 Other long term (current) drug therapy
CPT/HCPCS: 36415; 70450; 80053; 81001; 82948; 85025; 85610; 85730; 87086; 87637; 99284; A9270

== ENCOUNTER 2024-06-08 11:58 | Inpatient (IN) | payer MEDICARE, SELFPAY ==
[2024-06-08] VITALS (7 sets, daily range): BP systolic 131–170; BP diastolic 65–73; PULSE 80–96; RESP 16–20; TEMP 36.4–36.8; O2SAT 95–100; BMI 17.6
--- NOTE | ~2024-06-08 | CT_ITS ---
EXAMINATION: CT brain wo con DATE: 06/10/2024 09:40 INDICATION: Head injury. Fall. TECHNIQUE: Computed tomography (CT) of the head was performed without intravenous contrast. The mA wa s adjusted according to patient size. Iterative reconstruction technique was employed. The dose-lengt h product was 681.00 mGy-cm. COMPARISON: Head CT 06/06/24, brain MRI 06/08/2024 FINDINGS: There is a hypodense old hematoma in the right cerebellum with mild mass effect on the four th ventricle. There is a small old left cerebellar infarct. There are scattered areas of low attenuat ion in the cerebral white matter and bilateral basal ganglia. Again seen is a small acute infarct in the right temporal occipital white matter. There is no abnormal mass lesion. The orbits are normal. T he paranasal sinuses are clear. The mastoid air cells are normal. There is an old rajinder hole in right frontal bone. There is left posterior scalp soft tissue swelling. IMPRESSION: 1. Stable small acute infarct in the right temporal occipital region. 2. Stable chronic hematoma in the right cerebellum. 3. Small old infarct in the left cerebellum. 4. Stable extensive nonspecific cerebral white matter disease and disease of the bilateral basal gang dmitriy, which likely represents chronic small vessel ischemic disease. Reviewed, dictated and finalized at location A. HOSE CUTTER IMPRESSION: 1. Stable small acute infarct in the right temporal occipital region. 2. Stable chronic hematoma in the right cerebellum. 3. Small old infarct in the left cerebellum. 4. Stable extensive nonspecific cerebral white matter disease and disease of th e bilateral basal ganglia, which likely represents chronic small vessel ischemi c disease.
--- NOTE | ~2024-06-08 | CT_ITS ---
EXAMINATION: CT cervical spine wo con DATE: 06/10/2024 09:44 INDICATION: Head injury. TECHNIQUE: Computed tomography (CT) of the cervical spine was performed without intravenous contrast. Automated exposure control and iterative reconstruction technique were employed. The dose-length pro duct was 105.62 mGy-cm. COMPARISON: None FINDINGS: There is 2 mm anterolisthesis of C7 on T1. Vertebral body heights are normal. There is dagmar rely decreased disc height at C4-C5 and C5-C6 and mildly decreased disc height at C6-C7. The followin g disc levels are specifically discussed: C2-C3: There is no uncovertebral joint osteoarthritis. There is severe right and mild left facet join t osteoarthritis. There is no neural foraminal stenosis. There is no central canal stenosis. C3-C4: There is moderate bilateral uncovertebral joint osteoarthritis. There is moderate right and se mil left facet joint osteoarthritis. There is mild bilateral neural foraminal stenosis. There is mil d central canal stenosis. C4-C5: There is severe bilateral uncovertebral joint osteoarthritis. There is moderate right and mild left facet joint osteoarthritis. There is moderate right and mild left neural foraminal stenosis. Th ere is mild central canal stenosis. C5-C6: There is severe bilateral uncovertebral joint osteoarthritis. There is mild bilateral facet chris int osteoarthritis. There is mild bilateral neural foraminal stenosis. There is mild central canal st enosis. C6-C7: There is no uncovertebral joint osteoarthritis. There is mild right and severe left facet join t osteoarthritis. There is mild left neural foraminal stenosis. There is no central canal stenosis. C7-T1: There is no uncovertebral joint osteoarthritis. There is ankylosis of the facet joints with mi ld hypertrophy. There is mild bilateral neural foraminal stenosis. There is no central canal stenosis . IMPRESSION: 1. No fracture. 2. Severe cervical spondylosis. Reviewed, dictated and finalized at location A. ERIN OPERATOR
--- NOTE | ~2024-06-08 | XR_ITS ---
EXAMINATION: XR chest 1V portable DATE: 06/08/2024 12:49 INDICATION: Stroke. Weakness. TECHNIQUE: frontal view of the chest was obtained. COMPARISON: Chest radiograph dated 05/27/2024 FINDINGS: Calcified nodules in the right lower lung zone and projecting over the left hemidiaphragm consistent with old granulomatous disease. No other airspace opacities, pulmonary edema, pleural effusion or pne umothorax. The cardiomediastinal silhouette is normal. Mild lower thoracic dextrocurvature with moder ate spondylosis. IMPRESSION: 1. No acute cardiopulmonary disease. Reviewed, dictated and finalized at location B. OPERATIONS SPECIALIST
--- NOTE | 2024-06-08 12:12 | ECG_ITS ---
Test Date: 2024-06-08 12:30:09 Measurements Intervals [place] Rate: 90 P: 65 MA: 167 QRS: -43 QRSD: 90 T: 47 QT: 354 QTc: 433 Interpretive Statements SINUS RHYTHM LEFT AXIS DEVIATION INCOMPLETE RIGHT BUNDLE BRANCH BLOCK ANTERIOR INFARCT, AGE INDETERMINATE INFERIOR INFARCT, AGE INDETERMINATE BASELINE ARTIFACT- I, II, III, AVR, AVL, AVF, V1-V3 ABNORMAL ECG Compared to ECG 05/27/2024 17:15:09 NO SIGNIFICANT CHANGE Electronically Signed On 06-08-2024 12:54:11 PLASTIC MACHINE OPERATOR by Drew Roque D.O.
--- NOTE | 2024-06-08 12:29 | ED.WEAKNESS ---
HPI - Weakness General Chief complaint: Weakness Stated complaint: CVA Time Seen by Provider: 06/08/24 12:05 Source: EMS Mode of arrival: EMS History of Present Illness HPI Narrative: 74 years old white female came from the radiology department with small acute infarct in the right temporal occipital white matter. History of recent hemorrhagic stroke, aphasia, generalized weakness currently on physical therapy at [facility] and speech therapy. Patient had MRI of the brain today which showed the above findings. Related Data Home Medications Medication Instructions Recorded Confirmed acetaminophen 325 mg tablet 650 mg PO Q6H PRN Pain 05/23/24 05/23/24 amlodipine 10 mg tablet 10 mg PO DAILY 05/23/24 05/23/24 chlorthalidone 50 mg tablet 50 mg PO DAILY 05/23/24 05/23/24 docusate sodium 100 mg capsule 100 mg PO BID 05/23/24 05/23/24 heparin (porcine) 5,000 unit/mL 5,000 unit subcut Q12H 05/23/24 05/23/24 injection solution losartan 100 mg tablet 100 mg PO HS 05/23/24 05/23/24 sennosides 8.6 mg tablet 8.6 mg PO BID 05/23/24 05/23/24 Allergies Allergy/AdvReac Type Severity Reaction Status Date / Time chocolate Allergy Migraine Verified 05/30/24 09:03 onion Allergy Migraine Verified 05/30/24 09:03 Review of Systems Review of Systems: ROS unobtainable: Yes unobtainable due to medical condition PMFSH Past Medical History Medical History HTN (hypertension) Social History Social History Smoking status: Never smoker Second hand tobacco smoke exposure: No Alcohol intake: never Substance use: never Spiritual care concerns: No Exam Narrative: General appearance: Well-developed, well-nourished Skin: Normal color Head: Normocephalic, nontraumatic Eyes: Clear conjunctiva ENT: Oropharynx normal, ears normal, nose normal Neck: Supple, nontender Chest and respiratory: Airway patent, no respiratory distress, no accessory muscle use Heart: Regular rate/rhythm Abdomen: Soft, nontender, no organomegaly, quiet bowel sounds Vascular: Normal peripheral pulses, normal capillary refill. Musculoskeletal: Left hemiplegia Neurologic: Alert and oriented to her name only, left hemiplegia Patient is severely depressed, noncommunicable, is able to tell me her name only otherwise no answers. Course Consultations Consultation #1: DR ALLAN ADMIT TO HOSPITALIST Date: 06/08/24 Time: 13:08 Vital Signs Vital signs: Vital Signs Pulse Rate 90 06/08/24 12:04 Respiratory Rate 18 06/08/24 12:04 Blood Pressure 143/65 H 06/08/24 12:04 Pulse Oximetry 95 06/08/24 12:04 Temperature 36.4 C 06/08/24 12:23 Pulse Rate 94 06/08/24 12:23 Respiratory Rate 20 06/08/24 12:23 Blood Pressure 138/72 06/08/24 12:23 Pulse Oximetry 99 06/08/24 12:23 MDM - Weakness MDM Narrative Medical decision making narrative: patient came with general weakness, depression Vital signs on arrival stable Physical examination showing debilitating patient, oriented to her name only, noncooperative probably secondary to depression MRI of the brain today showed small acute infarct in the right temporal occipital white matter CBC today showed hemoglobin of 10.5 otherwise insignificant abnormalities CMP today showed sodium 134 otherwise no significant abnormalities Urinalysis showed evidence of infection which could be another factor for her depression and weakness Chest x-ray showed no acute abnormalities Admit to hospitalist Diagnosis acute CVA and urinary tract infection Lab Data 06/08/24 12:29 06/08/24 12:29 Labs: Lab Results 06/08/24 Range/Units 12:29 WBC 5.6 (4.5-10.0) K/mm3 RBC 3.29 L (4.2-5.4) M/mm3 Hgb 10.5 L (12.0-15.0) g/dL Hct 31.7 L (37.0-47.0) % MCV 96.4 (80-100) fl MCH 31.9 (26-34) pg MCHC 33.1 (32-36) g/dl RDW 15.2 H (11.5-14.5) % Plt Count 309 (150-375) k/mm3 MPV 8.6 (7.4-10.4) fl Immature Gran % (Auto) 0.4 (0-0.5) % Neut % (Auto) 54.1 (45.5-73.1) % Lymph % (Auto) 36.7 (18.3-44.2) % [place] % (Auto) 7.1 (2.6-8.5) % Eos % (Auto) 1.2 (0-4.4) % Baso % (Auto) 0.5 (0.2-1.2) % Lymph # (Auto) 2.07 (0.9-3.2) K/mm3 [place] # (Auto) 0.4 (0.1-0.6) K/mm3 Eos # (Auto) 0.1 (0-0.3) K/mm3 Baso # (Auto) 0.0 (0.0-0.1) K/mm3 Abs Immat Gran (auto) 0.02 (0.00-0.031) K/mm3 Absolute Neuts (auto) 3.1 (1.3-6.7) K/mm3 Absolute Nucleated RBC 0.000 (0.0-0.012) K/mm3 Nucleated RBC % 0.0 (0.0-0.2) % PT 13.5 (11.1-14.7) Seconds INR 1.0 APTT 30.7 (22.3-36.8) Seconds Sodium 134 L (137-145) mmol/L Potassium 4.0 (3.4-5.0) mmol/L Chloride 97 L (98-107) mmol/L Carbon Dioxide 29 (22-30) mmol/L Anion Gap 8 (4-12) mmol/L BUN 26 H (7-17) mg/dL Creatinine 0.80 (0.7-1.0) mg/dL Estim Creat Clear Calc Not Reportable Estimated GFR > 60 (59 - ) Glucose 104 (65-110) mg/dL Lactic Acid 1.4 (0.7-2.0) mmol/L Calcium 9.7 (8.4-10.2) mg/dL Magnesium 2.2 (1.6-2.3) mg/dL Total Bilirubin 0.4 (0.2-1.3) mg/dL AST 27 (14-36) U/L ALT 17 (6-35) U/L Alkaline Phosphatase 114 (38-126) U/L Troponin I Pending Total Protein 8.0 (6.3-8.2) g/dL Albumin 4.2 (3.5-5.1) g/dL Critical Care Time Critical Care Time Critical Care Time: No Discharge Plan Discharge Clinical Impression: Acute cerebrovascular accident (CVA), Urinary tract infection Patient Disposition: Still a Patient Condition: Guarded Prognosis Prescriptions: No Action cephalexin 500 mg capsule 500 mg PO Q8H 7 Days Qty: 21 0RF sennosides 8.6 mg Tablet 8.6 mg PO BID acetaminophen 325 mg Tablet 650 mg PO Q6H PRN (Reason: Pain) chlorthalidone 50 mg Tablet 50 mg PO DAILY amlodipine 10 mg Tablet 10 mg PO DAILY docusate sodium 100 mg Capsule 100 mg PO BID losartan 100 mg Tablet 100 mg PO HS heparin (porcine) 5,000 unit/mL Solution 5,000 unit SUBCUT Q12H Follow-up/Referrals: Hiram,Mony Babin DO [Primary Care Provider] - Quality Stroke Scale Stroke Scale 1: 1a Level of consciousness: alert-0 1b Level of consciousness questions: answers both correctly-0 1c Level of consciousness commands: obeys both correctly-0 2 Best gaze: normal-0 3 Visual: no visual loss-0 4 Facial palsy: normal-0 5a Motor: left arm: some effort/gravity-2 5b Motor: right arm: no drift-0 6a Motor: left leg: some effort/gravity-2 6b Motor: right leg: no drift-0 7 Limb ataxia: present in one limb-1 8 Sensory: normal-0 9 Best language: some loss of fluency-1 10 Dysarthria: slurs some words-1 11 Extinction and inattention: no abnormality-0 Level:: 7
[2024-06-08 12:43] LABS: Basophils Percent Auto 0.5 % (0.2-1.2); Eosinophils Absolute Auto 0.1 K/mm3 (0-0.3); Eosinophils Percent Auto 1.2 % (0-4.4); Hematocrit 31.7 % (37.0-47.0); Hemoglobin 10.5 g/dL (12.0-15.0); Immature Granulocyte Absolute 0.02 K/mm3 (0.00-0.031); Immature Granulocyte Percent A 0.4 % (0-0.5); Lymphocytes Absolute Auto 2.07 K/mm3 (0.9-3.2); Lymphocytes Percent Auto 36.7 % (18.3-44.2); Mean Corpuscular HGB Conc 33.1 g/dl (32-36); Mean Corpuscular Hemoglobin 31.9 pg (26-34); Mean Corpuscular Volume 96.4 fl (80-100); Mean Platelet Volume 8.6 fl (7.4-10.4); Monocytes Absolute Auto 0.4 K/mm3 (0.1-0.6); Monocytes Percent Auto 7.1 % (2.6-8.5); Neutrophils Absolute Auto 3.1 K/mm3 (1.3-6.7); Neutrophils Percent Auto 54.1 % (45.5-73.1); Platelet Count Result 309 k/mm3 (150-375); Red Blood Count 3.29 M/mm3 (4.2-5.4); Red Cell Distribution Width 15.2 % (11.5-14.5); White Blood Count 5.6 K/mm3 (4.5-10.0)
[2024-06-08 12:54] LABS: Lactic Acid Reflex 1.4 mmol/L (0.7-2.0); Prothrombin Time 13.5 Seconds (11.1-14.7)
[2024-06-08 12:55] LABS: Alanine Aminotransferase 17 U/L (6-35); Albumin Level 4.2 g/dL (3.5-5.1); Alkaline Phosphatase 114 U/L (38-126); Anion Gap 8 mmol/L (4-12); Aspartate Amino Transferase 27 U/L (14-36); Bilirubin,Total 0.4 mg/dL (0.2-1.3); Blood Urea Nitrogen 26 mg/dL (7-17); Calcium 9.7 mg/dL (8.4-10.2); Carbon Dioxide 29 mmol/L (22-30); Chloride 97 mmol/L (98-107); Estimated Glomerular Filt Rate > 60; Glucose 104 mg/dL (65-110); Partial Thromboplastin Time 30.7 Seconds (22.3-36.8); Sodium 134 mmol/L (137-145)
[2024-06-08 13:02] LABS: Magnesium 2.2 mg/dL (1.6-2.3)
[2024-06-08 13:07] LABS: Troponin I < 0.012 ng/mL (0.000-0.034)
[2024-06-08 13:34] LABS: Add Urine Microscopic? YES; Appearance Urine Clear (Clear); Bacteria Urine 4+ /hpf; Bilirubin Urine Negative (Negative); Blood Urine Negative (Negative); Color Urine Yellow (Yellow); Glucose Urine UA Negative (Negative); Ketones Urine Negative (Negative); Leukocyte Esterase Ur Negative LEU/UL (Negative); Need Manual Microscopic Reviewed; Nitrate Urine Positive (Negative); Non Pathogenic Casts 0-2; Protein Urine Negative (Negative); RBC Urine 0-2 /hpf (0-2); Specific Grav Ur 1.016 (1.001-1.035); Squamous Epithelial Cell Urine None Seen /hpf (Few); Urobilinogen Urine 0.2 mg/dL (<2.0); WBC Urine 0-5 /hpf (0-3); pH Urine 7.5 (5.0-9.0)
[2024-06-08 13:35] LABS: Amorphous Sediment Urine Moderate
--- NOTE | 2024-06-08 14:28 | PM.IMHP ---
H&P: HPI History of Present Illness Date/Time: 06/08/24 14:28 Chief Complaint: Abnormal Imaging Narrative: 74 y/o F presents here with abnormal imaging with PMH of CVA (residual word finding difficulty and confusion), cerebellar hemorrhage, dysphagia, and HTN. The patient presents here from [facility] via EMS. The patient originally presented here for an outpatient MRI. After the image with taken, the patient was brought here for further evaluation given abnormal findings on MRI. MRI today showed a new small acute infarct in the right temporal occipital white matter as well as chronic findings. Recently discovered a 3.7 cm posterior fossa parenchymal mass with surrounding edema, 4th ventricular effacement, and anterior brainstem and lucinda displacement on CT when she was initially evaluated at [facility] ED for nausea, vomiting, and difficulty walking x1 week. 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 She was transferred to [facility] on 05/03 for further evaluation and EVD placement. MRI done on 05/04 which demonstrated a subacute cerebellar intraparenchymal hemorrhage can chronic microbleeds in a pattern that is consistent with hypertensive induced injuries. Given concern for potential mass lesion, recommended patient have repeat MRI in 2-3 months. EVD was then clamped on 05/05 and removed on 05/06. G-tube placed on 05/13 secondary to dysphagia. She was discharged to [facility] on 05/23 with a regular diet with thin liquids, tube feedings for night nutrition. Since she has been at rehab but she has been to the ER twice, once on 05/27/2024 due to the patient not acting like herself and imaging was unchanged and she was discharged back. Second visit on 05/06/2024 with a similar presentation, she was found to have a UTI and started on Keflex 500 mg q.8 hour x7 days. Per rehab progress note, the patient became confused on 06/06. Lab work, UA, and a head CT were performed. Head CT showed asymmetric focus of decreased attenuation within the cerebellum demonstrating mass effect on the 4th ventricle with an MRI recommended. UA showed a UTI, started on Keflex. Culture pending. MRI that was performed today showed new small acute infarct, admission for a neurology consult. The patient currently denies dysuria, urinary frequency, or abdominal pain. During her phsyical exam she did report mild left upper extremity numbness and she had left lower extremity Initial VS at presentation: 97.6? F, HR 90, RR 18, 143/65, and 95% on RA. ED workup showed: No leukocytosis, hemoglobin 10.5 (previously 9.1 on 06/07/2024), normal coags, sodium 134, creatinine 0.8 and GFR >60, UA showed positive nitrates, moderate amorphous sediment, and 4+ bacteria. CXR showed no acute cardiopulmonary disease. Review of Systems Review of Systems: All systems reviewed & are unremarkable except as noted in HPI and below PMFSH Past Medical History Medical History Aphasia CVA (cerebral vascular accident) right temporal occipital, left cerebellum Debilitated HTN (hypertension) Intraparenchymal hemorrhage of brain Social History Social History Smoking status: Never smoker Second hand tobacco smoke exposure: No Alcohol intake: never Substance use: never Do You Feel Safe in your Home?: Yes Lack of Transportation: No Lack of Food: Never True Current Housing: I Have Housing Concerned About Future Housing: No Difficulty Paying Gas/Electric Bills: No Difficulty Paying for Meds: No Currently Unemployed: No Education: High School Diploma/GED Difficulty w/ Childcare or Family Care: No Spiritual care concerns: No Meds Home Medications and Allergies Home Medications Medication Instructions Recorded Confirmed Type acetaminophen 325 mg tablet 650 mg PO Q6H PRN Pain 05/23/24 06/08/24 History amlodipine 10 mg tablet 5 mg PO DAILY 05/23/24 06/08/24 History heparin (porcine) 5,000 unit/mL 5,000 unit subcut Q12H 05/23/24 06/08/24 History injection solution losartan 100 mg tablet 25 mg PO HS 05/23/24 06/08/24 History cephalexin 500 mg capsule 500 mg PO Q8H 7 days #21 caps 06/06/24 06/08/24 Rx hydrochlorothiazide 25 mg tablet 25 mg PO DAILY 06/08/24 06/08/24 History mirtazapine 7.5 mg tablet 7.5 mg PO HS 06/08/24 06/08/24 History modafinil 200 mg tablet 200 mg PO QAM 06/08/24 06/08/24 History sennosides 8.6 mg-docusate sodium 2 tablet PO BID 06/08/24 06/08/24 History 50 mg tablet (Senna with Docusate Sodium) Allergies Allergy/AdvReac Type Severity Reaction Status Date / Time chocolate Allergy Migraine Verified 05/30/24 09:03 onion Allergy Migraine Verified 05/30/24 09:03 Vital Signs Vital Signs - 24 hr 06/08/24 12:23 06/08/24 12:04 06/08/24 14:01 Temperature 97.6 F Pulse Rate 94 90 84 Respiratory Rate 20 18 19 Blood Pressure 138/72 143/65 H 131/67 Pulse Oximetry 99 95 98 Exam Const: General: comfortable and no acute distress Other: , female, nontoxic appearance HENMT: Face/Nose/Sinus: Normal nares present Mouth: Yes moist mucous membranes Eyes: General: appearance normal, both eyes and all related structures Sclera: sclerae normal Pupils: Equal, round and reactive pupils present EOM: EOMs intact bilaterally Resp: Effort & Inspection: normal respiratory effort Auscultation: clear to auscultation bilaterally Cardio: Rate: regular rate Rhythm: regular rhythm Other: S1-S2 present without murmur, rub, ectopy GI: Other: Abdomen soft, nondistended, nontender. Skin: General skin exam: normal color and no rashes or lesions noted Wounds: no wounds Neuro: Other: A/Ox1. Incorrect year provided (1923) and did not know where she was or any situational history. 4+ dorsiflexion, symmetric. 5+ in bilateral upper extremities. numbness in LUE. reported some in LLE but has resolved. no nystagmus, facial droop, or dysarthria. Some difficulty with word finding observed. Extrem: General: normal to inspection Psych: Other: Poor insight and judgment. H&P: Results Labs Labs: Short CBC 06/08/24 Range/Units 12:29 WBC 5.6 (4.5-10.0) K/mm3 Hgb 10.5 L (12.0-15.0) g/dL Hct 31.7 L (37.0-47.0) % Plt Count 309 (150-375) k/mm3 [facility] 06/08/24 12:29 Sodium 134 L Potassium 4.0 Chloride 97 L Carbon Dioxide 29 BUN 26 H Creatinine 0.80 Glucose 104 Calcium 9.7 Cardiac Enzymes 06/08/24 Range/Units 12:29 Troponin I < 0.012 (0.000-0.034) ng/mL Liver Function 06/08/24 Range/Units 12:29 Total Bilirubin 0.4 (0.2-1.3) mg/dL AST 27 (14-36) U/L ALT 17 (6-35) U/L Alkaline Phosphatase 114 (38-126) U/L Albumin 4.2 (3.5-5.1) g/dL Urine 06/08/24 Range/Units 13:07 Urine Color Yellow (Yellow) Urine Appearance Clear (Clear) Urine pH 7.5 (5.0-9.0) Ur Specific Parker 1.016 (1.001-1.035) Urine Protein Negative (Negative) mg/dL Urine Glucose (UA) Negative (Negative) mg/dL Assessment and Plan Assessment and plan (1) Acute cerebrovascular accident (CVA): Code(s): I63.9 - Cerebral infarction, unspecified Status: Acute Assessment and Plan: MRI performed today, 06/08/2024, showed new acute infarct in the right temporal occipital white matter. MRI done for increased confusion starting on 06/06/2024. - admission for observation and telemetry - not candidate for thrombolytics or thrombectomy due to timeframe - CXR: No acute cardiopulmonary disease - brain MRI: 1. Small acute infarct in the right temporal occipital white matter. 2. Chronic hematoma in the right cerebellum. 3. Small old infarct in the left cerebellum. 4. Extensive nonspecific cerebral white matter disease and disease of the deep zapata nuclei and brainstem, which likely represents chronic small vessel ischemic disease. - neurology consulted, awaiting formal recs - continue monthly diet for dysphagia from previous CVA, see below - continue PT/OT and speech while inpatient - given subacute hemorrhage, will hold on initiating Plavix - requesting records from [facility] to avoid duplicate workup - care coordination consulted, at [facility] but has new stroke and may need extension of rehab services - monitor daily labs (2) UTI (urinary tract infection): Qualifiers: Hematuria presence: without hematuria Urinary tract infection type: acute cystitis Qualified Code(s): N30.00 - Acute cystitis without hematuria Code(s): N39.0 - Urinary tract infection, site not specified Status: Acute Assessment and Plan: - UA: Positive nitrates, moderate amorphous sediment, 4+ bacteria - UC repeating given patient remains nitrate positive - previous micro reviewed: pansensitive E coli on 05/28/2024, no growth on 06/06/2024 - continuation of ABX with Ceftriaxone (3) Intraparenchymal hemorrhage of brain: Code(s): I61.9 - Nontraumatic intracerebral hemorrhage, unspecified Status: Chronic Assessment and Plan: - MRI, 06/08/2024: chronic hematoma the right cerebellum - outpatient plan for repeat MRI in 2-3 months for resolution, following with Neurosurgery at [facility] (4) Dysphagia: Qualifiers: Dysphagia type: unspecified Qualified Code(s): R13.10 - Dysphagia, unspecified Code(s): R13.10 - Dysphagia, unspecified Status: Chronic Assessment and Plan: - G-tube placed on 05/13/2024 - continue outpatient diet: regular diet with thin liquids, tube feedings for night nutrition. - dietitian consult for tube feedings (5) HTN (hypertension): Qualifiers: Hypertension type: primary hypertension Qualified Code(s): I10 - Essential (primary) hypertension Code(s): I10 - Essential (primary) hypertension Status: Chronic Assessment and Plan: - chronic, currently 131/67 - continue home medications: Hydrochlorothiazide 25 mg daily, amlodipine 5 mg daily, losartan 25 mg HS - monitor Plan Lisa (patient's DEBRA) and point of contact would like to be kept in the loop as she is coordinating the patient's care. Diet: Heart healthy, thin liquids, tube feedings HS GI Prophylaxis: Not currently indicated DVT Prophylaxis: SCDs, home heparin b.i.d. held Lines: Peripheral Code Status: Full code Quality VTE Prophylaxis VTE prophylaxis: mechanical ordered Hospitalist MIPS Advance Care Plan I have confirmed that the patient's Advanced Care Plan is present, code status is documented, or surrogate decision maker is listed in patient medical record.: Yes Medication Reconciliation I have utilized all available resources to obtain, update and review the patients current medications (includes all prescriptions, OTC, herbals, cannabis, and nutritional supplements).: Yes
--- NOTE | 2024-06-08 14:52 | ADMGEN ---
This patient, Lisa Love, was admitted to 2 Medical Room 259-01. Patient/family oriented to hospital policies and general routines including ID bracelet, bed and alarms, visiting hours, pain management, procedures, bathroom and other care routines, personal items, smoking policy, room service/diet, and visiting hours. Information on how to activate the Rapid Response Team has been discussed. Patient/Family are encouraged to report perceived risks to care and to ask questions if they do not understand what they are told or what they should do.
--- NOTE | 2024-06-08 15:03 | PC.NURSE ---
Spoke to RN that cared for PT at [facility] and updated them on POC
--- NOTE | 2024-06-08 19:43 | PC.NURSE ---
This RN went into pt's room at 1935 in order to attempt to set up her tube feeding. Pt refused multiple attempts, stated: I am not going to do it! Get out!
--- NOTE | 2024-06-08 22:12 | PC.NURSE ---
This RN notified SEWING [facility] BALER Lara about the pt refusing all of the following: her medications, (BP 170/70), pt refusing PEG tube feedings, pt pushing and shoving, pt being a danger to self (constantly getting out of bed), pt refusing telemetry. No new orders.
--- NOTE | 2024-06-08 22:36 | PC.NURSE ---
NIYA Bermudez advised this RN to leave the gambling monitor off of the pt since pt is refusing it, do not wake her up to attempt tube feeding and do not wake her up for vitals throughout the night.
[2024-06-09 05:22] VITALS: BP 125/67; PULSE 80; RESP 18; TEMP 36.6; O2SAT 98
--- NOTE | 2024-06-09 05:42 | PC.NURSE ---
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 Pt was encouraged multiple times to use the bedside commode or bed gaspar, pt refused. NIYA Brown notified. REGULATORY ATTORNEY stated she will add orders.
[2024-06-09 06:09] LABS: Hematocrit 27.1 % (37.0-47.0); Hemoglobin 8.9 g/dL (12.0-15.0); Mean Corpuscular HGB Conc 32.8 g/dl (32-36); Mean Corpuscular Hemoglobin 31.7 pg (26-34); Mean Corpuscular Volume 96.4 fl (80-100); Mean Platelet Volume 8.8 fl (7.4-10.4); Platelet Count Result 256 k/mm3 (150-375); Red Blood Count 2.81 M/mm3 (4.2-5.4); Red Cell Distribution Width 15.3 % (11.5-14.5); White Blood Count 4.6 K/mm3 (4.5-10.0)
[2024-06-09 06:12] LABS: Anion Gap 6 mmol/L (4-12); Blood Urea Nitrogen 30 mg/dL (7-17); Carbon Dioxide 27 mmol/L (22-30); Chloride 101 mmol/L (98-107); Estimated CRCL calculation 36 ml/min; Estimated Glomerular Filt Rate > 60; Glucose 81 mg/dL (65-110); Sodium 134 mmol/L (137-145)
[2024-06-09] MEDS: SENNA/DOCUSATE SODIUM TABLET 2 TAB PO ×2 (09:17→17:18)
[2024-06-09] MEDS: modafiniL (*CRX) 200 MG TABLET PO (09:17)
[2024-06-09] MEDS: hydroCHLOROthiazide 25 MG TABLET PO (09:17)
[2024-06-09] MEDS: amLODIPine BESYLATE 5 MG TABLET PO (09:17)
--- NOTE | 2024-06-09 11:01 | PCNFU ---
Nutrition Follow-Up Complete: Suboptimal Energy Intake as related to CVA as evidenced by PEG tube feedings. Goal: Meet estimated nutritional needs. Patient has limited progress towards goal. We will continue current goal. Pt current nutrition is Heart Healthy diet with Ensure Enlive TID/Nocturnal Tube feedings of Jevity 1.2 at 50 ml/hr. Last recorded weight is 43.8 kg, no new weight to report. Bowel Motility: Last BM reported prior to admit on 06/06 Labs Reviewed: BUN 30, NA 134, Hct 27.1, Hgb 8.9 Meds Noted:Remeron, Rocephin, Senokot. Skin: WNL Additional Notes: Patient remains on a Heart Healthy diet with diet supplements TID. Spoke with nursing today, oral intake about 75% of breakfast. Tube feedings reported not given due to patient refusing. Recommend tube feedings of Jevity 1.5 at 50 ml/hr which will provide an additional 900 kcals/38 gm protein/456 ml water. Flush 100 ml q 4 hours. Agree with diet orders. Will monitor weight, labs, meds, skin, diet orders every Wednesday and Wednesday.
[2024-06-09 11:42] VITALS: O2SAT 97
--- NOTE | 2024-06-09 13:41 | P.PNIM_ITS ---
Progress Note: A&P Assessment and Plan (1) Acute cerebrovascular accident (CVA): Code(s): I63.9 - Cerebral infarction, unspecified Status: Acute Assessment and Plan: MRI performed today, 06/08/2024, showed new acute infarct in the right temporal occipital white matter. MRI done for increased confusion starting on 06/06/2024. - admission for observation and telemetry - not candidate for thrombolytics or thrombectomy due to timeframe - CXR: No acute cardiopulmonary disease - brain MRI: 1. Small acute infarct in the right temporal occipital white matter. 2. Chronic hematoma in the right cerebellum. 3. Small old infarct in the left cerebellum. 4. Extensive nonspecific cerebral white matter disease and disease of the deep zapata nuclei and brainstem, which likely represents chronic small vessel isc hemic disease. - neurology consulted, awaiting formal recs - continue monthly diet for dysphagia from previous CVA, see below - continue PT/OT and speech while inpatient - given subacute hemorrhage, will hold on initiating Plavix - requesting records from [facility] to avoid duplicate workup - care coordination consulted, at [facility] but has new stroke and may need extension of rehab services - monitor daily labs - held her blood pressure medications for now to allow for permissive HTN (2) UTI (urinary tract infection): Qualifiers: Hematuria presence: without hematuria Urinary tract infection type: acute cystitis Qualified Code(s): N30.00 - Acute cystitis without hematuria Code(s): N39.0 - Urinary tract infection, site not specified Status: Acute Assessment and Plan: - UA: Positive nitrates, moderate amorphous sediment, 4+ bacteria - UC repeating given patient remains nitrate positive - previous micro reviewed: pansensitive E coli on 05/28/2024, no growth on 06/06/2024 - continuation of ABX with Ceftriaxone (3) Intraparenchymal hemorrhage of brain: Code(s): I61.9 - Nontraumatic intracerebral hemorrhage, unspecified Status: Chronic Assessment and Plan: - MRI, 06/08/2024: chronic hematoma the right cerebellum - outpatient plan for repeat MRI in 2-3 months for resolution, following with Neurosurgery at [facility] (4) Dysphagia: Qualifiers: Dysphagia type: unspecified Qualified Code(s): R13.10 - Dysphagia, unspecified Code(s): R13.10 - Dysphagia, unspecified Status: Chronic Assessment and Plan: - G-tube placed on 05/13/2024 - continue outpatient diet: regular diet with thin liquids, tube feedings for night nutrition. - dietitian consult for tube feedings (5) HTN (hypertension): Qualifiers: Hypertension type: primary hypertension Qualified Code(s): I10 - Essential (primary) hypertension Code(s): I10 - Essential (primary) hypertension Status: Chronic Assessment and Plan: - chronic, currently 131/67 - continue home medications: Hydrochlorothiazide 25 mg daily, amlodipine 5 mg daily, losartan 25 mg HS - holding agents for now Plan Lisa (patient's DEBRA) and point of contact would like to be kept in the loop as she is coordinating the patient's care. Diet: Heart healthy, thin liquids, tube feedings HS GI Prophylaxis: Not currently indicated DVT Prophylaxis: SCDs, home heparin b.i.d. held Lines: Peripheral Code Status: Full code Subjective Date/time seen: 06/09/24 13:41 Interval history: Patient is seen resting in bed in no acute distress. She is alert and orientated self and can tell me she is at [place]. She is unsure of the month and year. She denies dizziness, headache, chest pain, shortness of breath, abdominal pain, nausea, vomiting, diarrhea, or constipation. Because of her confusion and aphasia it is difficult get a true picture of her ROS. She tells me that her left eye is weak but then says her right eye is also weak. Review of Systems Review of Systems: All systems reviewed & are unremarkable except as noted in HPI and below Exam Narrative: General: appears comfortable, in no acute distress, frail, elderly Respiratory: breathing is unlabored with even chest rise/fall, lungs are clear without wheezing, rhonchi, and crackles Cardiovascular: Rate and rhythm regular, normal s1s2, no murmur Abdomen: Soft, round, non-tender, active bowel sounds Extremities: No cyanosis, edema, clubbing. Pulses 2/2 Neuro: A&O x 2, PERRLA 3 mm, left upper and lower extremity weakness. Skin: Warm, dry, intact Objective Data Vital Signs Vital Signs: Vital Signs - 24 hr 06/08/24 14:01 06/08/24 15:02 06/08/24 14:51 Temperature 98.3 F Pulse Rate 84 84 Respiratory Rate 19 16 Blood Pressure 131/67 145/73 H Pulse Oximetry 98 100 Oxygen Delivery Room Air 06/08/24 16:00 06/08/24 20:15 06/08/24 20:00 Temperature 97.8 F Pulse Rate 81 96 96 Respiratory Rate 18 18 Blood Pressure 170/70 H Pulse Oximetry 98 98 Oxygen Delivery Room Air 06/08/24 20:00 06/09/24 05:22 06/09/24 11:42 Temperature 97.8 F Pulse Rate 80 80 Respiratory Rate 18 Blood Pressure 125/67 Pulse Oximetry 98 97 Oxygen Delivery Room Air Intake/Output Intake/Output: Intake & Output 06/06/24 06/07/24 06/08/24 06/09/24 23:59 23:59 23:59 23:59 Intake Total 290 170 Output Total 480 Balance 290 -310 Meds/Results Medications: Active Medications Generic Name Dose Route Start Last Admin Trade Name Freq PRN Reason Stop Dose Admin Acetaminophen 650 mg 06/08/24 17:50 Acetaminophen 325 Mg Tablet PO Q6H PRN Mild Pain (1-3) or Fever Amlodipine Besylate 5 mg 06/09/24 09:00 06/09/24 09:17 Amlodipine Besylate 5 Mg Tablet PO 5 mg DAILY CLAUDIA Administration Hydralazine HCl 10 mg 06/09/24 10:36 Hydralazine Hcl 20 Mg/Ml Vial IV PUSH Q8H PRN SBP greater than 200 mmhg Hydrochlorothiazide 25 mg 06/09/24 09:00 06/09/24 09:17 Hydrochlorothiazide 25 Mg Tablet PO 25 mg DAILY CLAUDIA Administration Ceftriaxone Sodium 1 gm in 50 mls @ 100 mls/hr 06/08/24 13:15 06/09/24 09:48 Rocephin 1 Gm/Ns 50 Ml IVPB Infused QAM CLAUDIA Infusion Losartan Potassium 25 mg 06/08/24 21:00 06/08/24 20:18 Losartan Potassium 25 Mg Tablet PO Not Given HS CLAUDIA Mirtazapine 7.5 mg 06/08/24 21:00 06/08/24 20:18 Mirtazapine 7.5 Mg Tablet PO Not Given HS CLAUDIA Modafinil 200 mg 06/09/24 09:00 06/09/24 09:17 Modafinil (*Crx) 200 Mg Tablet PO 200 mg QAM CLAUDIA Administration Senna/Docusate Sodium 2 tab 06/09/24 09:00 06/09/24 09:17 Senna/Docusate Sodium Tablet PO 2 tab BID CLAUDIA Administration Radiology Results: ITS Impressions Chest X-Ray 06/08/24 12:50 IMPRESSION: 1. No acute cardiopulmonary disease. Labs Labs: Laboratory Results - last 24 hr 06/09/24 05:17 WBC 4.6 RBC 2.81 L Hgb 8.9 L Hct 27.1 L MCV 96.4 MCH 31.7 MCHC 32.8 RDW 15.3 H Plt Count 256 MPV 8.8 Sodium 134 L Potassium 4.0 Chloride 101 Carbon Dioxide 27 Anion Gap 6 BUN 30 H Creatinine 0.80 Estim Creat Clear Calc 36 Estimated GFR > 60 Glucose 81 Calcium 9.0 Quality VTE Prophylaxis VTE prophylaxis: mechanical ordered
[2024-06-09 14:00] VITALS: BP 116/72; PULSE 93; RESP 16; TEMP 36.6; O2SAT 97
--- NOTE | 2024-06-09 14:48 | PC.NURSE ---
Request for record from [facility] sent.
--- NOTE | 2024-06-09 15:28 | P.CONNEU_ITS ---
Assessment and Plan Assessment and plan (1) Acute cerebrovascular accident (CVA): Code(s): I63.9 - Cerebral infarction, unspecified Status: Acute (2) Intraparenchymal hemorrhage of brain: Code(s): I61.9 - Nontraumatic intracerebral hemorrhage, unspecified Status: Chronic Plan Current mental status would most likely be due to the result from the cerebellar hemorrhage and hydrocephalus for which she has undergone treatment and may take some time to improve. The more recent nonhemorrhagic infarct the found as most likely coincidental finding in the right temporal occipital area was noted however she does not appear to have significant weakness although mild tremor of the life left hand was noted. She is moving both upper and lower limbs mental status appears to predominant finding. According to daughter she is able to walk with the supervision and walker pre also suggest continue physical therapy. Her hemoglobin also 8.9. She probably will still require another MRI of the brain in 2 3 months time to look for what is underneath the right cerebellar hemorrhage. Supportive treatment is recommended. Attention to blood pressure and try to keep it under control is also important. Consult date: 06/09/24 HPI: Lisa Love is a 74 year old female With history of right cerebral hematoma for which she was of rated at [facility] around 05/04/2024. I would do not have the details of a what exactly happened. Apparently the patient has had a significant change in mental status after that. She was brought in to the rehab unit at [facility] on 05/24 2024. There was a question of a mass under be the hematoma in the right cerebellar area and a follow-up was supposed to take place after 2 3 months to see if when the blood c lears up in the meanwhile apparently there was some change in her neuro status but the patient unable to give me a definite history. She states that she has some numbness in her right arm. She did an MRI of the brain done yesterday which shows a new infarct in the right temporal area in addition to the previous right cerebellar hematoma and hence he was brought to emergency room and subsequently admitted. Patient has had a change in mental status after the major neurological problem described above. Patient's daughter was here but she states that she was herself in the hospital and does not know some of the details. Some of the notes from the rehab however available. Review of Systems Review of Systems: All systems reviewed & are unremarkable except as noted in HPI and below PMFSH Past Medical History Medical History Aphasia CVA (cerebral vascular accident) right temporal occipital, left cerebellum Debilitated HTN (hypertension) Intraparenchymal hemorrhage of brain Social History Social History Smoking status: Never smoker Second hand tobacco smoke exposure: No Alcohol intake: never Substance use: never Do You Feel Safe in your Home?: Yes Lack of Transportation: No Lack of Food: Never True Current Housing: I Have Housing Concerned About Future Housing: No Difficulty Paying Gas/Electric Bills: No Difficulty Paying for Meds: No Currently Unemployed: No Education: High School Diploma/GED Difficulty w/ Childcare or Family Care: No Spiritual care concerns: No Meds Home Medications and Allergies Home Medications Medication Instructions Recorded Confirmed Type acetaminophen 325 mg tablet 650 mg PO Q6H PRN Pain 05/23/24 06/08/24 History amlodipine 10 mg tablet 5 mg PO DAILY 05/23/24 06/08/24 History heparin (porcine) 5,000 unit/mL 5,000 unit subcut Q12H 05/23/24 06/08/24 History injection solution losartan 100 mg tablet 25 mg PO HS 05/23/24 06/08/24 History cephalexin 500 mg capsule 500 mg PO Q8H 7 days #21 caps 06/06/24 06/08/24 Rx hydrochlorothiazide 25 mg tablet 25 mg PO DAILY 06/08/24 06/08/24 History mirtazapine 7.5 mg tablet 7.5 mg PO HS 06/08/24 06/08/24 History modafinil 200 mg tablet 200 mg PO QAM 06/08/24 06/08/24 History sennosides 8.6 mg-docusate sodium 2 tablet PO BID 06/08/24 06/08/24 History 50 mg tablet (Senna with Docusate Sodium) Allergies Allergy/AdvReac Type Severity Reaction Status Date / Time chocolate Allergy Migraine Verified 05/30/24 09:03 onion Allergy Migraine Verified 05/30/24 09:03 Vital Signs Vital Signs - 24 hr 06/08/24 16:00 06/08/24 20:15 06/08/24 20:00 Temperature 97.8 F Pulse Rate 81 96 96 Respiratory Rate 18 18 Blood Pressure 170/70 H Pulse Oximetry 98 98 Oxygen Delivery Room Air 06/08/24 20:00 06/09/24 05:22 06/09/24 11:42 Temperature 97.8 F Pulse Rate 80 80 Respiratory Rate 18 Blood Pressure 125/67 Pulse Oximetry 98 97 Oxygen Delivery Room Air 06/09/24 09:14 06/09/24 14:00 Temperature 97.9 F Pulse Rate 93 Respiratory Rate 16 Blood Pressure 116/72 Pulse Oximetry 97 Oxygen Delivery Room Air Exam Narrative: Patient is fully conscious, no aphasia or dysarthria. When asked to name 5 colors she meds to give me 4. When asked to name 5 5 who did she could not give me any. unable to answer most other questions. her cognition and orientation also appears somewhat limited. Examination head and neck shows no evidence of recent injury. No nuchal rigidity. Cranial nerves pupils were equal reacting. Visual nelson could not be reliably tested. Extraocular movements were intact. No facial asymmetry. Face sensation grossly intact the tongue was midline. Other cranial normal limits per motor system she is moving both upper and lower limbs mild tremor of the left hand was noted deep tendon reflex was 0 to 1/4 no asymmetry of the sensation noted in upper lower limbs. Remainder of the examination was unremarkable. Results Labs 06/09/24 05:17 06/09/24 05:17 Labs: Short CBC 06/09/24 Range/Units 05:17 WBC 4.6 (4.5-10.0) K/mm3 Hgb 8.9 L (12.0-15.0) g/dL Hct 27.1 L (37.0-47.0) % Plt Count 256 (150-375) k/mm3 [facility] 06/09/24 05:17 Sodium 134 L Potassium 4.0 Chloride 101 Carbon Dioxide 27 BUN 30 H Creatinine 0.80 Glucose 81 Calcium 9.0
[2024-06-09 16:00] VITALS: PULSE 91
[2024-06-09 20:00] VITALS: PULSE 86; RESP 18; O2SAT 98
[2024-06-09 20:14] VITALS: BP 126/62; PULSE 86; RESP 18; TEMP 37; O2SAT 98
[2024-06-09] MEDS: LOSARTAN POTASSIUM 25 MG TABLET PO (20:30)
[2024-06-09] MEDS: MIRTAZAPINE 7.5 MG TABLET PO (20:30)
[2024-06-10] VITALS (7 sets, daily range): BP systolic 117–142; BP diastolic 64–91; PULSE 74–93; RESP 16–18; TEMP 36.4–36.8; O2SAT 99–100
[2024-06-10 05:51] LABS: Hematocrit 27.5 % (37.0-47.0); Hemoglobin 9.2 g/dL (12.0-15.0); Mean Corpuscular HGB Conc 33.5 g/dl (32-36); Mean Corpuscular Hemoglobin 32.2 pg (26-34); Mean Corpuscular Volume 96.2 fl (80-100); Mean Platelet Volume 8.9 fl (7.4-10.4); Platelet Count Result 258 k/mm3 (150-375); Red Blood Count 2.86 M/mm3 (4.2-5.4); Red Cell Distribution Width 15.1 % (11.5-14.5); White Blood Count 4.9 K/mm3 (4.5-10.0)
[2024-06-10 06:00] LABS: Alanine Aminotransferase 13 U/L (6-35); Albumin Level 3.5 g/dL (3.5-5.1); Alkaline Phosphatase 81 U/L (38-126); Anion Gap 7 mmol/L (4-12); Aspartate Amino Transferase 23 U/L (14-36); Bilirubin,Total 0.1 mg/dL (0.2-1.3); Blood Urea Nitrogen 30 mg/dL (7-17); Carbon Dioxide 28 mmol/L (22-30); Chloride 101 mmol/L (98-107); Estimated CRCL calculation 36 ml/min; Estimated Glomerular Filt Rate > 60; Glucose 139 mg/dL (65-110); Potassium 3.4 mmol/L (3.4-5.0); Sodium 136 mmol/L (137-145)
--- NOTE | 2024-06-10 06:51 | PM.IMPN ---
Progress Note: A&P Assessment and Plan (1) Acute cerebrovascular accident (CVA): Code(s): I63.9 - Cerebral infarction, unspecified Status: Acute Assessment and Plan: MRI performed today, 06/08/2024, showed new acute infarct in the right temporal occipital white matter. MRI done for increased confusion starting on 06/06/2024. - admission for observation and telemetry - not candidate for thrombolytics or thrombectomy due to timeframe - CXR: No acute cardiopulmonary disease - brain MRI: 1. Small acute infarct in the right temporal occipital white matter. 2. Chronic hematoma in the right cerebellum. 3. Small old infarct in the left cerebellum. 4. Extensive nonspecific cerebral white matter disease and disease of the deep zapata nuclei and brainstem, which likely represents chronic small vessel ischemic disease. - neurology consulted, awaiting formal recs - continue monthly diet for dysphagia from previous CVA, see below - continue PT/OT and speech while inpatient - given subacute hemorrhage, will hold on initiating Plavix - requesting records from [facility] to avoid duplicate workup - care coordination consulted, at [facility] but has new stroke and may need extension of rehab services - monitor daily labs - resumed HTN medications (2) UTI (urinary tract infection): Qualifiers: Hematuria presence: without hematuria Urinary tract infection type: acute cystitis Qualified Code(s): N30.00 - Acute cystitis without hematuria Code(s): N39.0 - Urinary tract infection, site not specified Status: Acute Assessment and Plan: - UA: Positive nitrates, moderate amorphous sediment, 4+ bacteria - UC repeating given patient remains nitrate positive - previous micro reviewed: pansensitive E coli on 05/28/2024, no growth on 06/06/2024 - patient lost IV access. She is hemodynamically stable and has received 2 days of IV Rocephin. Will transition to oral antibiotics with Augmentin for a total of 5 days. Culture is still pending. (3) Intraparenchymal hemorrhage of brain: Code(s): I61.9 - Nontraumatic intracerebral hemorrhage, unspecified Status: Chronic Assessment and Plan: - MRI, 06/08/2024: chronic hematoma the right cerebellum - outpatient plan for repeat MRI in 2-3 months for resolution, following with Neurosurgery at [facility] (4) Dysphagia: Qualifiers: Dysphagia type: unspecified Qualified Code(s): R13.10 - Dysphagia, unspecified Code(s): R13.10 - Dysphagia, unspecified Status: Chronic Assessment and Plan: - G-tube placed on 05/13/2024 - continue outpatient diet: regular diet with thin liquids, tube feedings for night nutrition. - dietitian consult for tube feedings (5) HTN (hypertension): Qualifiers: Hypertension type: primary hypertension Qualified Code(s): I10 - Essential (primary) hypertension Code(s): I10 - Essential (primary) hypertension Status: Chronic Assessment and Plan: - chronic, currently 131/67 - continue home medications: Hydrochlorothiazide 25 mg daily, amlodipine 5 mg daily, losartan 25 mg HS - continue medications (6) Fall: Code(s): W19.XXXA - Unspecified fall, initial encounter Status: Acute Assessment and Plan: Patient had an unwitnessed fall on 06/10 after getting up to go to the restroom. She was found on the ground and bed alarm was sounding. She suffered a small head laceration to the right posterior head approximately 2-3 cm in length. Surrounding area was cleansed with soap and water and Dr Lester in the ED placed sofi. CT head and neck was obtained and did not show an acute intracranial insult or fracture. Bed alarm on at all times, fall precautions in place. Neuro checks every 4 hours. Plan Lisa (patient's DEBRA) and point of contact would like to be kept in the loop as she is coordinating the patient's care. She will remain inpatient today for monitoring after her fall. Plan for discharge tomorrow. Diet: Heart healthy, thin liquids, tube feedings HS GI Prophylaxis: Not currently indicated DVT Prophylaxis: SCDs, home heparin b.i.d. held Lines: Peripheral Code Status: Full code Subjective Date/time seen: 06/10/24 06:51 Interval history: Nursing contact me this morning stating that the patient had an unwitnessed fall. Patient was found on the floor by housekeeping with bed alarm sounding. She was found on the floor with a small laceration to the back of her head. On exam she is alert and orientated to person and place which is her baseline. She is complaining of a headache. Review of Systems Review of Systems: All systems reviewed & are unremarkable except as noted in HPI and below Exam Narrative: General: appears comfortable, in no acute distress, frail, elderly Respiratory: breathing is unlabored with even chest rise/fall, lungs are clear without wheezing, rhonchi, and crackles Cardiovascular: Rate and rhythm regular, normal s1s2, no murmur Abdomen: Soft, round, non-tender, active bowel sounds Extremities: No cyanosis, edema, clubbing. Pulses 2/2 Neuro: A&O x 2, PERRLA 3 mm, left upper and lower extremity weakness. Skin: Warm, dry, intact. Scalp laceration to right posterior head approximately 2-3 cm. Objective Data Vital Signs Vital Signs: Vital Signs - 24 hr 06/09/24 11:42 06/09/24 09:14 06/09/24 14:00 Temperature 97.9 F Pulse Rate 93 Respiratory Rate 16 Blood Pressure 116/72 Pulse Oximetry 97 97 Oxygen Delivery Room Air Room Air 06/09/24 14:54 06/09/24 16:00 06/09/24 20:14 Temperature 98.6 F Pulse Rate 91 86 Respiratory Rate 18 Blood Pressure 126/62 Pulse Oximetry 98 Oxygen Delivery Room Air 06/09/24 20:00 06/10/24 04:31 06/10/24 04:00 Temperature 97.8 F Pulse Rate 86 75 76 Respiratory Rate 18 18 Blood Pressure 117/64 Pulse Oximetry 98 99 Oxygen Delivery Room Air Intake/Output Intake/Output: Intake & Output 06/07/24 06/08/24 06/09/24 06/10/24 23:59 23:59 23:59 23:59 Intake Total 290 170 0 Output Total 480 Balance 290 -310 0 Meds/Results Medications: Active Medications Generic Name Dose Route Start Last Admin Trade Name Ankurq PRN Reason Stop Dose Admin Acetaminophen 650 mg 06/08/24 17:50 Acetaminophen 325 Mg Tablet PO Q6H PRN Mild Pain (1-3) or Fever Amlodipine Besylate 5 mg 06/09/24 09:00 06/09/24 09:17 Amlodipine Besylate 5 Mg Tablet PO 5 mg DAILY CLAUDIA Administration Hydralazine HCl 10 mg 06/09/24 10:36 Hydralazine Hcl 20 Mg/Ml Vial IV PUSH Q8H PRN SBP greater than 200 mmhg Hydrochlorothiazide 25 mg 06/09/24 09:00 06/09/24 09:17 Hydrochlorothiazide 25 Mg Tablet PO 25 mg DAILY CLAUDIA Administration Ceftriaxone Sodium 1 gm in 50 mls @ 100 mls/hr 06/08/24 13:15 06/09/24 09:48 Rocephin 1 Gm/Ns 50 Ml IVPB Infused QAM CLAUDIA Infusion Losartan Potassium 25 mg 06/08/24 21:00 06/09/24 20:30 Losartan Potassium 25 Mg Tablet PO 25 mg HS CLAUDIA Administration Mirtazapine 7.5 mg 06/08/24 21:00 06/09/24 20:30 Mirtazapine 7.5 Mg Tablet PO 7.5 mg HS CLAUDIA Administration Modafinil 200 mg 06/09/24 09:00 06/09/24 09:17 Modafinil (*Crx) 200 Mg Tablet PO 200 mg QAM CLAUDIA Administration Senna/Docusate Sodium 2 tab 06/09/24 09:00 06/09/24 17:18 Senna/Docusate Sodium Tablet PO 2 tab BID CLAUDIA Administration Radiology Results: ITS Impressions Chest X-Ray 06/08/24 12:50 IMPRESSION: 1. No acute cardiopulmonary disease. Labs Labs: Laboratory Results - last 24 hr 06/10/24 05:07 WBC 4.9 RBC 2.86 L Hgb 9.2 L Hct 27.5 L MCV 96.2 MCH 32.2 MCHC 33.5 RDW 15.1 H Plt Count 258 MPV 8.9 Sodium 136 L Potassium 3.4 Chloride 101 Carbon Dioxide 28 Anion Gap 7 BUN 30 H Creatinine 0.80 Estim Creat Clear Calc 36 Estimated GFR > 60 Glucose 139 H Calcium 9.0 Total Bilirubin 0.1 L AST 23 ALT 13 Alkaline Phosphatase 81 Total Protein 7.0 Albumin 3.5 Quality VTE Prophylaxis VTE prophylaxis: mechanical ordered
--- NOTE | 2024-06-10 08:42 | PC.NURSE ---
Spoke to emergency contact Lisa regarding fall this AM. Contact aware that patient was moved closer to nurses station and that we will obtain a head and neck CT.
[2024-06-10] MEDS: SENNA/DOCUSATE SODIUM TABLET 2 TAB PO ×2 (10:05→16:58)
[2024-06-10] MEDS: modafiniL (*CRX) 200 MG TABLET PO (10:05)
[2024-06-10] MEDS: ACETAMINOPHEN 325 MG TABLET 650 MG PO ×2 (10:06→20:01)
[2024-06-10] MEDS: AMOXICILLIN/CLAVULANATE K 875-125 MG TAB 1 TABLET PO ×2 (13:11→20:01)
--- NOTE | 2024-06-10 18:56 | ED.PROCEDURE ---
Procedures Laceration Laceration 1: Site: scalp Side (if applicable): left Size (cm): 2 Description: linear Depth: simple, single layer Pre-repair: wound explored and irrigated Skin layer closed with: sofi Number of sutures: 3
[2024-06-10] MEDS: LOSARTAN POTASSIUM 25 MG TABLET PO (20:01)
[2024-06-10] MEDS: MIRTAZAPINE 7.5 MG TABLET PO (20:01)
[2024-06-11] VITALS: BP 104/52; PULSE 81; RESP 18; TEMP 36.4; O2SAT 98
[2024-06-11 04:00] VITALS: BP 113/53; PULSE 78; RESP 18; TEMP 36.6; O2SAT 97
[2024-06-11 05:28] LABS: Hematocrit 27.4 % (37.0-47.0); Mean Corpuscular HGB Conc 32.8 g/dl (32-36); Mean Corpuscular Hemoglobin 31.9 pg (26-34); Mean Corpuscular Volume 97.2 fl (80-100); Mean Platelet Volume 8.9 fl (7.4-10.4); Platelet Count Result 277 k/mm3 (150-375); Red Blood Count 2.82 M/mm3 (4.2-5.4); Red Cell Distribution Width 15.2 % (11.5-14.5)
[2024-06-11 05:36] LABS: Alanine Aminotransferase 14 U/L (6-35); Albumin Level 3.3 g/dL (3.5-5.1); Alkaline Phosphatase 82 U/L (38-126); Anion Gap 6 mmol/L (4-12); Aspartate Amino Transferase 23 U/L (14-36); Bilirubin,Total 0.3 mg/dL (0.2-1.3); Blood Urea Nitrogen 29 mg/dL (7-17); Calcium 8.9 mg/dL (8.4-10.2); Carbon Dioxide 29 mmol/L (22-30); Chloride 99 mmol/L (98-107); Estimated CRCL calculation 41 ml/min; Estimated Glomerular Filt Rate > 60; Glucose 126 mg/dL (65-110); Potassium 3.4 mmol/L (3.4-5.0); Sodium 134 mmol/L (137-145)
[2024-06-11 08:01] VITALS: BP 124/71; PULSE 79; RESP 16; O2SAT 100
[2024-06-11 08:05] VITALS: PULSE 79; RESP 16; O2SAT 100
[2024-06-11] MEDS: amLODIPine BESYLATE 5 MG TABLET PO (08:05)
[2024-06-11] MEDS: AMOXICILLIN/CLAVULANATE K 875-125 MG TAB 1 TABLET PO (08:05)
[2024-06-11] MEDS: hydroCHLOROthiazide 25 MG TABLET PO (08:05)
[2024-06-11] MEDS: modafiniL (*CRX) 200 MG TABLET PO (08:05)
[2024-06-11] MEDS: SENNA/DOCUSATE SODIUM TABLET 2 TAB PO (08:05)
[2024-06-11 08:52] LABS: Cholesterol 209 mg/dL (0-200); HDL Direct 43 mg/dL; Triglycerides 223 mg/dL (<150)
[2024-06-11 09:03] LABS: LDL Cholesterol Direct 108 mg/dL
--- NOTE | 2024-06-11 11:11 | PM.DS ---
DS: Admitting Diagnosis Discharge Date 06/11 Admitting Diagnosis confusion DS: Discharge Diagnosis Discharge Diagnosis (1) Acute cerebrovascular accident (CVA): Code(s): I63.9 - Cerebral infarction, unspecified Status: Acute Assessment and Plan: MRI performed today, 06/08/2024, showed new acute infarct in the right temporal occipital white matter. MRI done for increased confusion starting on 06/06/2024. - admission for observation and telemetry - not candidate for thrombolytics or thrombectomy due to timeframe - CXR: No acute cardiopulmonary disease - brain MRI: 1. Small acute infarct in the right temporal occipital white matter. 2. Chronic hematoma in the right cerebellum. 3. Small old infarct in the left cerebellum. 4. Extensive nonspecific cerebral white matter disease and disease of the deep zapata nuclei and brainstem, which likely represents chronic small vessel ischemic disease. - neurology consulted, awaiting formal recs - continue monthly diet for dysphagia from previous CVA, see below - continue PT/OT and speech while inpatient - given subacute hemorrhage, will hold on initiating Plavix - requesting records from [facility] to avoid duplicate workup - care coordination consulted, at [facility] but has new stroke and may need extension of rehab services - monitor daily labs - resumed HTN medications (2) UTI (urinary tract infection): Qualifiers: Hematuria presence: without hematuria Urinary tract infection type: acute cystitis Qualified Code(s): N30.00 - Acute cystitis without hematuria Code(s): N39.0 - Urinary tract infection, site not specified Status: Acute Assessment and Plan: - UA: Positive nitrates, moderate amorphous sediment, 4+ bacteria - UC repeating given patient remains nitrate positive - previous micro reviewed: pansensitive E coli on 05/28/2024, no growth on 06/06/2024 - patient lost IV access. She is hemodynamically stable and has received 2 days of IV Rocephin. Will transition to oral antibiotics with Augmentin for a total of 5 days. Culture is still pending. (3) Intraparenchymal hemorrhage of brain: Code(s): I61.9 - Nontraumatic intracerebral hemorrhage, unspecified Status: Chronic Assessment and Plan: - MRI, 06/08/2024: chronic hematoma the right cerebellum - outpatient plan for repeat MRI in 2-3 months for resolution, following with Neurosurgery at [facility] (4) Dysphagia: Qualifiers: Dysphagia type: unspecified Qualified Code(s): R13.10 - Dysphagia, unspecified Code(s): R13.10 - Dysphagia, unspecified Status: Chronic Assessment and Plan: - G-tube placed on 05/13/2024 - continue outpatient diet: regular diet with thin liquids, tube feedings for night nutrition. - dietitian consult for tube feedings (5) HTN (hypertension): Qualifiers: Hypertension type: primary hypertension Qualified Code(s): I10 - Essential (primary) hypertension Code(s): I10 - Essential (primary) hypertension Status: Chronic Assessment and Plan: - chronic, currently 131/67 - continue home medications: Hydrochlorothiazide 25 mg daily, amlodipine 5 mg daily, losartan 25 mg HS - continue medications (6) Fall: Code(s): W19.XXXA - Unspecified fall, initial encounter Status: Acute Assessment and Plan: Patient had an unwitnessed fall on 06/10 after getting up to go to the restroom. She was found on the ground and bed alarm was sounding. She suffered a small head laceration to the right posterior head approximately 2-3 cm in length. Surrounding area was cleansed with soap and water and Dr Lester in the ED placed oleksandr. CT head and neck was obtained and did not show an acute intracranial insult or fracture. Bed alarm on at all times, fall precautions in place. Neuro checks every 4 hours. Plan Lisa (patient's DEBRA) and point of contact would like to be kept in the loop as she is coordinating the patient's care. She will remain inpatient today for monitoring after her fall. Plan for discharge tomorrow. Diet: Heart healthy, thin liquids, tube feedings HS GI Prophylaxis: Not currently indicated DVT Prophylaxis: SCDs, home heparin b.i.d. held Lines: Peripheral Code Status: Full code DS: Summary Hospital Course Hospital Course: 74 y/o F presents here with abnormal imaging with PMH of CVA (residual word finding difficulty and confusion), cerebellar hemorrhage, dysphagia, and HTN. The patient presents here from [facility] via EMS. The patient originally presented here for an outpatient MRI. After the image with taken, the patient was brought here for further evaluation given abnormal findings on MRI. MRI today showed a new small acute infarct in the right temporal occipital white matter as well as chronic findings. Recently discovered a 3.7 cm posterior fossa parenchymal mass with surrounding edema, 4th ventricular effacement, and anterior brainstem and lucinda displacement on CT when she was initially evaluated at [facility] ED for nausea, vomiting, and difficulty walking x1 week. 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 She was transferred to [facility] on 05/03 for further evaluation and EVD placement. MRI done on 05/04 which demonstrated a subacute cerebellar intraparenchymal hemorrhage can chronic microbleeds in a pattern that is consistent with hypertensive induced injuries. Given concern for potential mass lesion, recommended patient have repeat MRI in 2-3 months. EVD was then clamped on 05/05 and removed on 05/06. G-tube placed on 05/13 secondary to dysphagia. She was discharged to [facility] on 05/23 with a regular diet with thin liquids, tube feedings for night nutrition. Since she has been at rehab but she has been to the ER twice, once on 05/27/2024 due to the patient not acting like herself and imaging was unchanged and she was discharged back. Second visit on 05/06/2024 with a similar presentation, she was found to have a UTI and started on Keflex 500 mg q.8 hour x7 days. Per rehab progress note, the patient became confused on 06/06. Lab work, UA, and a head CT were performed. Head CT showed asymmetric focus of decreased attenuation within the cerebellum demonstrating mass effect on the 4th ventricle with an MRI recommended. UA showed a UTI, started on Keflex. Culture pending. MRI that was performed today showed new small acute infarct, admission for a neurology consult. The patient currently denies dysuria, urinary frequency, or abdominal pain. During her phsyical exam she did report mild left upper extremity numbness and she had left lower extremity Initial VS at presentation: 97.6? F, HR 90, RR 18, 143/65, and 95% on RA. ED workup showed: No leukocytosis, hemoglobin 10.5 (previously 9.1 on 06/07/2024), normal coags, sodium 134, creatinine 0.8 and GFR >60, UA showed positive nitrates, moderate amorphous sediment, and 4+ bacteria. CXR showed no acute cardiopulmonary disease. Neurology was consulted and reviewed the MRI results. They recommended continuing blood pressure control. Since she had no change to her baseline functioning or mental status, they felt this was likely a coincidental finding from her recent hemorrhagic stroke in April. None the less her lipid panel was elevated so I started her on atorvastatin and verified with neurology that starting baby aspirin 81 mg would be acceptable. During her hospital stay she had an unwitnessed fall in which she suffered a right, posterior head laceration approximately 2-3 cm requiring 3 oleksandr to be placed by ED physician, Dr Lester. Fall precautions were in place and her bed alarm was alarming. Repeat CT head and cervical spine imaging was obtained and showed no acute intracranial changes or fracture. She was monitored for the next 24 hours and neuro exams remained unchanged. She was also moved to a room directly across from the nurses station. Overall she did well and was able to discharge back to [facility] in stable condition for further PT/OT/ST. Time Spent with Patient Time attestation: Total time spent providing and/or coordinating discharge services: 74 Exam Narrative: General: appears comfortable, in no acute distress, frail, elderly Respiratory: breathing is unlabored with even chest rise/fall, lungs are clear without wheezing, rhonchi, and crackles Cardiovascular: Rate and rhythm regular, normal s1s2, no murmur Abdomen: Soft, round, non-tender, active bowel sounds Extremities: No cyanosis, edema, clubbing. Pulses 2/2 Neuro: A&O x 2, PERRLA 3 mm, left upper and lower extremity weakness. Skin: Warm, dry, intact. Scalp laceration to right posterior head approximately 2-3 cm with 3 oleksandr placed. DS: Data Data Completed and Pending Labs on day of discharge: Labs from last 24 hours 06/11/24 06/11/24 04:24 04:19 WBC 5.0 RBC 2.82 L Hgb 9.0 L Hct 27.4 L MCV 97.2 MCH 31.9 MCHC 32.8 RDW 15.2 H Plt Count 277 MPV 8.9 Sodium 134 L Potassium 3.4 Chloride 99 Carbon Dioxide 29 Anion Gap 6 BUN 29 H Creatinine 0.70 Estim Creat Clear Calc 41 Estimated GFR > 60 Glucose 126 H Calcium 8.9 Total Bilirubin 0.3 AST 23 ALT 14 Alkaline Phosphatase 82 Total Protein 6.0 L Albumin 3.3 L Triglycerides 223 H Cholesterol 209 H LDL Cholesterol Direct 108 HDL Direct 43 Discharge Plan Discharge Attending physician on discharge: Jordan Zacarias Consulting providers: Esvin Bain Discharging Clinician: Monika Bateman Anticipated Discharge Date/Time: 06/11/24 08:09 Patient Disposition: [facility] Activity: november shower Diet: heart healthy and other - see discharge instructions Discharge Instructions: Recommend nocturnal tube feedings of Jevity 1.5 at 50 ml/hr which will provide an additional 900 kcals/38 gm protein/456 ml water. Flush 100 ml q 4 hours. Heart healthy diet with ensure TID. Thin liquids. Continue PT/OT/ST Fall precautions. During her hospitalization she suffered an unwitnessed fall striking the back of her right head. She sustained a laceration approximately 2-3 cm in length and 3 oleksandr were placed by the ED physician. CT of head and cervical spine was obtained and showed no new intracranial findings or concerns for fracture. Oleksandr will need to be removed in 10 days. Neurology consulted for new finding of small acute infarct in the right occipital lobe. Dr Bain suspects this is a coincidental finding from previous stroke as her weakness is not significantly different from this most recent stroke. She has a slight left hand tremor. Her mental status is at baseline. Neurology recommends conservative management with blood pressure control. Your total cholesterol and triglycerides were elevated as well as LDL of 108. We have started you on atorvastatin 40 mg daily as well as aspirin 81 mg daily. Patient Instructions: Self Care Measures After a Stroke (GEN), Fall Prevention (DC), Stroke (DC) Follow-up/Referrals: Hiram,Mony Babin DO [Primary Care Provider] - Discharge Medications: New amoxicillin-pot clavulanate 875-125 mg tablet 1 tablet PO Q12H Qty: 3 0RF Rx Instructions: Take tonight 06/11 and then twice a day on 06/12 atorvastatin 40 mg Tablet 40 mg PO DAILY Qty: 30 0RF aspirin 81 mg Tablet,Delayed Release (Dr/Ec) 81 mg PO QAM Qty: 30 0RF Continued modafinil 200 mg Tablet 200 mg PO QAM hydrochlorothiazide 25 mg Tablet 25 mg PO DAILY mirtazapine 7.5 mg Tablet 7.5 mg PO HS sennosides-docusate sodium [Senna with Docusate Sodium] 8.6-50 mg Tablet 2 tablet PO BID acetaminophen 325 mg Tablet 650 mg PO Q6H PRN (Reason: Pain) amlodipine 10 mg Tablet 5 mg PO DAILY losartan 100 mg Tablet 25 mg PO HS Discontinued cephalexin 500 mg capsule 500 mg PO Q8H 7 Days Qty: 21 0RF heparin (porcine) 5,000 unit/mL Solution 5,000 unit SUBCUT Q12H Date of admission: 06/08/24 15:25 Primary Care Provider: Hiram,Mony Babin Admitting Provider: Ignacio Teresa Attending physician on admission: Monika Bateman Condition: Stable Quality VTE Prophylaxis VTE prophylaxis: mechanical ordered
[2024-06-11 12:00] VITALS: BP 116/68; PULSE 84; RESP 18; TEMP 36.6; O2SAT 99
== END 2024-06-11 14:02 | DRG 65 ==
LOC: ANHED 13:12 → ANH2MED 15:29
PROVIDERS: Student in an Organized Health Care Education/Training Program; Admitting Provider Internal Medicine; Emergency Provider Emergency Medicine; PCP Family Medicine; Visit Provider Nurse Practitioner Acute Care
DX: I63.9 Cerebral infarction, unspecified (principal); I69.154 Hemiplegia and hemiparesis following nontraumatic intracerebral hemorrhage affecting left non-dominant side; N39.0 Urinary tract infection, site not specified; I10 Essential (primary) hypertension; R13.10 Dysphagia, unspecified; R29.707 NIHSS score 7; S01.01XA Laceration without foreign body of scalp, initial encounter; W19.XXXA Unspecified fall, initial encounter; I69.191 Dysphagia following nontraumatic intracerebral hemorrhage; I69.120 Aphasia following nontraumatic intracerebral hemorrhage; Z93.1 Gastrostomy status; Z79.01 Long term (current) use of anticoagulants
CPT/HCPCS: 36415; 70450; 71045; 72125; 80048; 80053; 80061; 81001; 83605; 83735; 84484; 85025; 85027; 85610; 85730; 87086; 92507; 92523; 93005; 96365; 97110; 97161; 97166; 97530; 99285; A9270; G0378; J0696